=== PATIENT | male | born 1955 | race Caucasian/White ===

== ENCOUNTER 2016-12-19 08:55 | Inpatient (IN) | payer MEDICARE, MEDICAID ==
[2016-12-19] VITALS (10 sets, daily range): BP systolic 121–157; BP diastolic 62–96; PULSE 74–89; RESP 17–29; O2SAT 92–96
[~2016-12-19] VITALS: Ht 182.9 cm; Wt 108.3 kg
[2016-12-19] MEDS ORDERED: Ondansetron 2 mg/mL 2 mL Inj ONE ×2 (10:00)
--- NOTE | 2016-12-19 10:28 | ED.REPORT ---
HPI-Abd Pain M 40 and Over Date of Service Dec 19, 2016 ED Provider: Nik Snyder MD Pt is a 61 year old male with a hx of Hepatitis C, PTSD, hernia, cirrhosis and hemorrhoids presenting to the ED via EMS complaining of lower abd pain onset at 1300 yesterday. Associated symptoms include nausea, vomiting, diarrhea, SOB, subjective fever. Denies dysuria, hematuria, hematemesis. The diarrhea has been more pronounced than the vomiting, and has had trace blood in it. He states that this pain has been worsening over the past few years, but he has not had to go to the hospital for this pain before. The pt has had a justin but still has his appendix. Nursing Notes Stated Complaint: NAUSEA/VOMITING/DIARRHEA Chief Complaint: Male Abdominal Pain Nursing Notes Reviewed: Yes ([place]ster not reconciled) Allergies: Coded Allergies: No Known Allergies (Verified Allergy, Unknown, 12/19/16) Scheduled Amlodipine (Amlodipine) 5 Mg Tablet 5 MG PO DAILY Lisinopril (Lisinopril) 20 Mg Tablet 20 MG PO BID Metoprolol Succinate ER (Metoprolol Succinate ER) 25 Mg Tab.er.24h 25 MG PO DAILY Omeprazole (Omeprazole) 40 Mg Capsule.dr 40 MG PO BID Simvastatin (Simvastatin) 20 Mg Tablet 20 MG PO HS Triamterene/HCTZ 37.5-25 mg (Dyazide 37.5-25 mg) 1 Each Capsule 1 CAPSULE PO DAILY General Time Seen by MD: 09:49 Chief Complaint Abdominal pain Hx Obtained From: Patient, EMS Arrived By: Ambulance Sudden in Onset?: No Onset Occurred: Yesterday Symptom Duration: Since onset Progression since Onset: Constant Location: : Abdomen lower Quality: Painful Radiation: : Abdomen lower Severity: Current: Severe Severity: Maximum: Severe Recent Healthcare: No recent doctor visit, No recent hospitalization Similar Sx Previous: Yes Past Medical History Past Medical History Cirrhosis, Hepatitis C, PTSD, hernia and hemorrhoids Past Surgical History Reports: Cholecystectomy, Denies: Appendectomy Smoking History Unknown if Ever Smoker Social History Other Social History: Ambulatory Status Independent Review of Systems Constitutional: Reports: Fever (Subjective) Respiratory: Reports: Shortness of breath GI: Reports: Abdominal pain, Diarrhea, Nausea, Vomiting, Denies: Hematemesis Male: Denies Dysuria, Denies Hematuria Complete sys rev & neg: except as marked. Physical Exam Initial Vital Signs Vital Signs (First) Date Time Temp Pulse Resp B/P Pulse Ox O2 Delivery O2 Flow Rate FiO2 12/19/16 09:01 37 80 17 157/88 95 Room Air Initial VS: Reviewed, Vital signs normal Head / Eyes: Atraumatic, Normocephalic, PERRL ENT: Mucous membranes moist, Conjunctiva normal, No scleral icterus Extremities: Vascular intact, Neuro intact, No swelling, No tenderness Skin: Warm, Dry, No cyanosis Neurologic: Alert, Oriented, Nonfocal Psychiatric: Mood/affect normal, Behavior normal, Normal thought content General/Constitutional: Awake, Alert, Well appearing Distress / Hydration: Positive: Distress moderate Respiratory / Chest: Breath sounds NL, Breath sounds = bilat, No respiratory distress, No rales, No rhonchi, No wheezing Cardiovascular: Heart rate NL, Regular rhythm, Heart sounds NL, Peripheral circulation NL Abdomen: Soft In severe crampy intermittent pain. Tenderness lower abdomen. Intimate but not reproducible guarding. Lower Extremity / Pelvis / MS: Neurologic intact, Vascular intact, No edema Interpretation & Diagnostics Lab Results Interpretation Result Diagram: 12/19/16 0905 12/19/16 0905 Test 12/19/16 09:05 12/19/16 12:34 White Blood Count 10.5th/mm3 (3.8-10.1) Red Blood Count 4.10mil/mm3 (4.40-5.80) Hemoglobin 13.9g/dL (13.8-17.2) Hematocrit 40.4% (41.0-50.0) Mean Corpuscular Volume 98.5fL (81-100) Mean Corpuscular Hemoglobin 33.9pg (27.0-35.0) Mean Corpuscular Hemoglobin Concent 34.4% (32.0-37.0) Red Cell Distribution Width 15.1% (12.3-15.4) Platelet Count 64bil/L (150-400) Neutrophils (%) (Auto) 88.6% (40-74) Lymphocytes (%) (Auto) 3.8% (14-46) Monocytes (%) (Auto) 7.2% (4-12) Eosinophils (%) (Auto) 0% (0-5) Basophils (%) (Auto) 0.1% (0-3) Hold Purple Top Tube Received (Received) Prothrombin Time 12.8sec (8.1-12.5) Prothromb Time International Ratio 1.19ratio Hold Blue Top Tube Received (Received) Sodium Level 137mEq/L (134-144) Potassium Level 3.5mEq/L (3.5-5.2) Chloride Level 103mEq/L (97-108) Carbon Dioxide Level 21mmol/L (18-29) Blood Urea Nitrogen 12mg/dL (6-24) Creatinine 0.84mg/dL (0.76-1.27) Estimat Glomerular Filtration Rate 99mL/min (>59) Glucose Level 129mg/dL (60-99) Calcium Level 8.8mg/dL (8.5-10.1) Magnesium Level 1.7mg/dL (1.6-2.6) Total Bilirubin 3.0mg/dL (0.0-1.2) Aspartate Amino Transf (AST/SGOT) 58U/L (0-50) Alanine Aminotransferase (ALT/SGPT) 49U/L (0-44) Alkaline Phosphatase 94U/L (25-160) Total Protein 7.4g/dL (6.4-8.4) Albumin 3.3g/dL (3.4-5.0) Lipase 13U/L (13-60) Procalcitonin 3.68ng/mL (0.00-0.08) Hold Red Top Tube Received (Received) Hold Coral Top Tube Received (Received) Urine Color Dark yellow (YELLOW) Urine Appearance Hazy (CLEAR,HAZY) Urine pH 6.0 (5.0-8.0) Urine Specific [place] 1.025 (1.003-1.035) Urine Protein 30mg/dL (NEG,TRACE) Urine Glucose (UA) Negativemg/dL (NEGATIVE) Urine Ketones Negativemg/dL (NEGATIVE) Urine Occult Blood Trace (NEGATIVE) Urine Nitrite Negative (NEGATIVE) Urine Bilirubin Negative (NEGATIVE) Urine Urobilinogen Normalmg/dL (NORMAL) Urine Leukocyte Esterase Negative (NEGATIVE) Urine RBC 0-2/hpf (0-2) Urine WBC 0-5/hpf (0-5) Urine Epithelial Cells Occasional/hpf (NONE-MOD) Urine Crystals None seen (NONE SEEN) Urine Bacteria None/hpf (NONE-FEW) Urine Hyaline Casts None/lpf (NONE) Urine Granular Casts None seen (NONE SEEN) Urine Waxy Casts None seen (NONE SEEN) Urine Red Blood Cell Casts None seen (NONE SEEN) Urine White Blood Cell Casts None seen (NONE SEEN) Urine Mucus Present (None Seen) Urine Trichomonas None seen (NONE SEEN) Urine Yeast None (NONE SEEN) Urinalysis Comment None Urine Culture Reflexed Not indicated Lab Results Interpretation: CBC 10.5, positive thrombocytopenia in setting of chronic liver disease CMP chronic LFT abnormalities, patient's cirrhotic INR normal Blood cultures [address] Abd / Pelvis Interpretation IMPRESSION: 1. Marked enlargement of the duodenum and proximal jejunum with corresponding prominent bowel wall thickening. This appearance is most suspicious for an infectious or inflammatory process. An ischemic process is felt to be unlikely, but cannot be excluded. 2. Edema adjacent to the pancreas is of doubtful significance. However, the possibility of acute pancreatitis is difficult to exclude. There are no pseudocysts or loculated fluid collections. 3. Cirrhotic liver morphology with multiple abdominal collateral vessels, splenomegaly, and mild to moderate ascites. 4. Colonic diverticulosis without diverticulitis. No complete bowel obstruction. 5. Mild basilar atelectasis within the imaged lung bases. Dictated by: Carlitos Carrillo M.D. on 12/19/2016 at 11:29 Study type: Abdominal CT IV contrast Interpretation / Wet Read by: Interpret - Radiologist Re-Eval/Medical Decision Med Decision/Clinical Course This is a 61-year-old male with a history of cirrhosis secondary hep C on rifaximin among other medications presents complaining of vomiting and diarrhea , subjective fevers, and increasing lower abdominal pain. Axilla waning crampy areas of pain and it has intermittent severe discomfort on initial exam. Patient denies any recent antibiotics beyond the rifaximin, no other risk factors for overt C. difficile. He denies prior history of similar symptoms. Patient appears very uncomfortable on exam and has intermittent severe pain. His abdominal exam is intermittent tenderness, could not persist take as might be expected in a clear surgical case, it is concerning enough symptoms that imaging was warranted. Blood work was nondiagnostic, CT imaging reveals bowel wall thickening and atypical areas, moderate ascites. But a definitive source was not identified. His ongoing discomfort to require titrated medications, case was discussed with GI who recommended going ahead and pursuing ultrasound-guided paracentesis to exclude SBP in the setting of his liver disease, and obtaining MRI imaging of the abdomen with the thought of portal vein thrombosis, or some sort of better clarification exclude ischemic given atypical ischemia in the lot numb and proximal jejunum, although this location for ischemia be very atypical Trying to obtain stool sample for PCR testing. Cultures of urine obtained. After being seen by the hospitalist given subjective fevers she is thinking of providing some empiric antibiotic coverage. The patient has been admitted for continued management. At this point a infectious source is still suspected, but a definitive etiology is not been established. Source of Hx: Old records Time of Eval: 14:06 Patient Status: Condition improved Re-Evaluation/Progress Note: Discussed plan for admission. Pt understands and agrees. Time of Eval: 14:39 Patient Status: Condition improved Re-Evaluation/Progress Note: Discussed plan for US and paracentesis, and MRI. Consultation #1: Referral / Consult Name: Farzad Evans MD Call Returned at: 14:29 Note: GI. Get an ultrasound and paracentesis and MRI. Consultation #2: Referral / Consult Name: Donavon Ambrose MD Consulted With: Hospitalist Call Returned at: 14:56 Panel Assembler: Will see patient, Agrees with plan, Accepts admit Counseled Regarding: Diagnosis, Lab results, Need for follow-up, When/why to return to ED Discharge & Departure Primary Impression: Generalized abdominal pain Additional Impressions: Vomiting and diarrhea Cirrhosis Hepatic cirrhosis type: unspecified hepatic cirrhosis Ascites presence: with ascites Qualified Code: K74.60 - Unspecified cirrhosis of liver Abnormal CT of the abdomen Disposition: ADMITTED TO HOSPITAL Vital Signs - All Vital Signs Date Time Temp Pulse Resp B/P Pulse Ox O2 Delivery O2 Flow Rate FiO2 12/19/16 14:30 85 21 136/62 92 Room Air 12/19/16 13:30 89 21 134/78 92 12/19/16 11:30 88 25 145/84 94 Room Air 12/19/16 10:57 84 29 154/93 92 Room Air 12/19/16 09:01 37 80 17 157/88 95 Room Air )( All Prior VS Reviewed: Yes Condition: Improved Referrals: [facility] (PCP) Scribe Attestation Portions of this note were transcribed by Sadia Corrales. I, Dr. Snyder personally performed the history, physical exam and medical decision-making; I reviewed and confirmed the accuracy of the information in the transcribed note. Signed by: Ciro King, 12/19/2016 at 1515. copies to: [facility] Nik Snyder MD Dec 19, 2016 10:28 SADIA CORRALES Dec 19, 2016 11:02
[2016-12-19] MEDS ORDERED: Ondansetron 2 mg/mL 2 mL Inj IVPUSH ONE ×2 (10:30→14:50)
[2016-12-19 11:06] LABS: EOSINOPHILS % (AUTO) 0 % (0-5); Mean Corpuscular Volume 98.5 fL (81-100)
[2016-12-19 11:10] LABS: BASOPHILS % (AUTO) 0.1 % (0-3); MONOCYTES % (AUTO) 7.2 % (4-12); Mean Corpuscular Hemoglobin 33.9 pg (27.0-35.0); NEUTROPHILS % (AUTO) 88.6 % (40-74); Platelet Count 64 bil/L (150-400)
[2016-12-19] MEDS ORDERED: 0.9% Sodium Chloride 1,000 ML IV ONE (11:15)
[2016-12-19] MEDS ORDERED: Ondansetron 2 mg/mL 2 mL Inj IVPUSH PRN (11:15)
[2016-12-19] MEDS: HYDROmorphone 0.5 mg/0.5 mL iSecure Syringe IVPUSH PRN ×3 (11:35→15:08)
[2016-12-19 11:39] LABS: Magnesium 1.7 mg/dL (1.6-2.6)
--- NOTE | 2016-12-19 13:01 | DRSVH ---
PROCEDURE: CT ABDOMEN AND PELVIS WITH CONTRAST ([id number]) INDICATIONS: abd pain TECHNIQUE: After the administration of intravenous contrast, 5 mm thick sections acquired from the diaphragm to the symphysis. 5 mm coronal and sagittal reformats were acquired. For radiation dose reduction, the following was used: automated exposure control, adjustment of mA and/or kV according to patient siz e. COMPARISON: None. FINDINGS: Image quality: Diagnostic. ABDOMEN: Lung bases: Mild posterior atelectasis is present within the both lung bases (right slightly greater than left). The heart is borderline enlarged. There is a very tiny inferior pericardial effusion. Small pericardial lymph nodes are incidentally noted with the largest measuring up to approximately 1 .1 cm in short axis. Solid organs: The liver is diffusely heterogeneous and demonstrates moderate nodularity to the surfac e of the liver. While no liver lesion is appreciated, evaluation for subtle liver lesions is difficu lt as this examination is noted to be within the portal venous phase and subsequently, several liver masses could potentially be missed. The patient has had a previous cholecystectomy and there is no s ignificant intrahepatic or extrahepatic biliary dilatation. The portal vein is patent and measures u p to approximately 2.3 cm in diameter, which is enlarged. A few borderline prominent vessels are see n within the upper mesentery and within the region of the gastroesophageal junction. The spleen is m arkedly enlarged and measures up to approximately 22.7 cm in craniocaudal dimension. No focal spleni c lesion is identified. The adrenals, kidneys, and pancreas appear to be within normal limits. The pancreas is largely fatty replaced, particularly involving the head and uncinate process. There may be edema adjacent to the tail of the pancreas within the adjacent mesentery. Peritoneum and bowel: The stomach is within normal limits. There is prominent thickening of the wall of the duodenum, which extends into the proximal jejunum with a small amount of fluid contained with in the bowel lumen and a moderate amount of edema within the adjacent mesentery. A small amount of f ree fluid is seen adjacent to these distended bowel loops. No definite abrupt transition point is ev ident. However, the transition from dilated to normal size small bowel is a smooth area of tapering (image 13, series 4). Moderate residual stool is identified throughout the colon. There is an exten sive distal colonic diverticulosis. A small to moderate amount of free fluid is seen within the uppe r abdomen, best appreciated adjacent to the liver. No loculated fluid collections or free air is inge dent. There is a small periumbilical fat containing hernia. Nodes and vessels: Multiple prominent upper retroperitoneal lymph nodes are identified, best apprecia silvia within the portacaval region with the largest measuring 3.4 x 1.3 cm (image 35, series 2). Addit ional smaller retroperitoneal lymph nodes are present. Multiple small mesenteric lymph nodes are als o seen adjacent to the root of the mesentery. Some of these lymph nodes are partially obscured by mu ltiple collateral vessels within the mesentery. The abdominal aorta is normal in course and caliber and demonstrates moderate atherosclerosis. The inferior vena cava is patent. Bones: No acute osseous abnormality is evident involving the imaged thoracolumbar spine. There are m ild degenerative changes of the spine. No suspicious osseous abnormalities are evident. PELVIS: Pelvic soft tissues: There are bladder is within normal limits. No significant bladder wall thickeni ng is present. There is a coarse calcification within the prostate, which is noted to be enlarged, m easuring up to approximately 5.4 x 4.1 cm. A small amount of free fluid is seen within the pelvis. There are no loculated fluid collections. There is no free air. There is a small fat containing lef t inguinal hernia. Fluid is seen extending into this hernia. Small pelvic lymph nodes are present. There is no bettye lymphadenopathy. Bones: No suspicious bony lesions. Mild to moderate degenerative changes are noted involving both h ips, sacroiliac joints, and pubic symphysis. IMPRESSION: 1. Marked enlargement of the duodenum and proximal jejunum with corresponding prominent bowel wall t hickening. This appearance is most suspicious for an infectious or inflammatory process. An ischemi c process is felt to be unlikely, but cannot be excluded. 2. Edema adjacent to the pancreas is of doubtful significance. However, the possibility of acute pa ncreatitis is difficult to exclude. There are no pseudocysts or loculated fluid collections. 3. Cirrhotic liver morphology with multiple abdominal collateral vessels, splenomegaly, and mild to moderate ascites. 4. Colonic diverticulosis without diverticulitis. No complete bowel obstruction. 5. Mild basilar atelectasis within the imaged lung bases. Dictated by: Carlitos Carrillo M.D. on 12/19/2016 at 11:29 Approved by: Carlitos Carrillo M.D. on 12/19/2016 at 11:56
[2016-12-19 13:04] LABS: APPEARANCE,URINE HAZY (CLEAR,HAZY); COLOR,URINE DARK YELLOW (YELLOW)
[2016-12-19 13:05] LABS: OCCULT BLOOD,URINE TRACE (NEGATIVE); UROBILINOGEN,URINE NORMAL (NORMAL)
[2016-12-19] MEDS ORDERED: HYDROmorphone 0.5 mg/0.5 mL iSecure Syringe IVPUSH PRN (14:50)
[2016-12-19 14:55] LABS: INR 1.19 ratio
--- NOTE | 2016-12-19 15:00 | NUR ---
admitted to room 1005 alert and oriented, pt denies nausea at this time, having generalized abd pain, VSS, lungs sound clear, no edema
[2016-12-19] MEDS: 0.9% Sodium Chloride 1,000 ML IV SCH (15:06)
[2016-12-19] MEDS ORDERED: Alum-Mag Hydrox-Simeth 30 mL Suspension PO PRN (15:10)
[2016-12-19] MEDS ORDERED: HYDROcodone-APAP 5-325 mg Tablet PO PRN (15:10)
[2016-12-19] MEDS ORDERED: Polyethylene Glycol (PEG) 17 Gm Powder PO PRN (15:10)
--- NOTE | 2016-12-19 15:26 | PCM.HPMED ---
Subjective Date of Service Dec 19, 2016 Primary Provider: Admitting Physician: Donavon Ambrose MD Primary Care Physician: [facility] Attending Physician: Donavon Ambrose MD Admit Status: From the Emergency Department, Admit to Blue Team Chief Complaint: Abdominal Pain, Nausea, Vomiting, Fever, Chills History of Present Illness: Patient is a 61 year old male with a past medical history of Hepatitis C, Hepatic Cirrhosis, Essential Hypertension, Hyperlipidemia, GERD, and Tobacco Use Disorder. He presents to the ER complaining of worsening abdominal pain for the past day. Pt states his symptoms began yesterday with severe pain across his mid abdomen. Pt states the pain is a dull sensation, and radiates across his mid abdomen. The pain comes and goes and at its worst, he reports it is a 10/10. Pt states he also had a fever to 102 degrees yesterday and chills. He also reports significant nausea and vomiting over the last day and has not been able tolerate any PO. Pt states he has also had significant diarrhea over the last two days. He denies any hematochezia and melena. Pt denies any recent sick contacts. Pt has no other complaints or concerns at this time. Review of Systems: All systems reviewed and are negative except for what has been mentioned in the HPI. Allergies Coded Allergies: No Known Allergies (Verified Allergy, Unknown, 12/19/16) Home Medications 1. Amlodipine 2. Aspirin 3. Hydrocodone 4. Lisinopril 5. Metoprolol 6. Naproxen 7. Omeprazole 8. Simvastatin 9. Triamterene 10. Rifaxamin PMH 1. Hepatitis C 2. Hepatic Cirrhosis 3. Tobacco Use Disorder 4. Essential Hypertension 5. Hyperlipidemia 6. GERD Surgical History None Family History Father - Hypertension, Heart Disease Mother - Stroke Social History Hx Alcohol Use: Yes ("SOME") Hx Substance Use: No Hx Tobacco Use: Yes Smoking Status: Current Every Day Smoker Exam Vital Signs Vital Sign - Last Date Time Temp Pulse Resp B/P Pulse Ox O2 Delivery O2 Flow Rate FiO2 12/19/16 10:57 84 29 154/93 92 Room Air 12/19/16 09:01 37 Exam GENERAL: Pt appears to be in mild distress from his abdominal pain, Pt laying in bed comfortably HEENT: AT/NC, PERRLA, EOMI, Mucus Membranes are moist CARDIAC: RRR; No M/R/G PULM: CTAB; No wheezes or rhonchi bilaterally ABD: Soft, Significant tenderness to palpation across the mid-abdomen, Nondistended, Positive bowel sounds in all quadrants, No Hepatosplenomegaly appreciated EXT: No C/C/E; No calf tenderness bilaterally SKIN: Warm, Dry, [place], and Intact NEURO: Alert and oriented x3; Following all commands PSYCH: Normal mood and affect Lab and Diagnostics Result Diagram: 12/19/1690412/19/16904 X-Rays, CTs and MRIs CT ABDOMEN AND PELVIS WITH CONTRAST IMPRESSION: 1. Marked enlargement of the duodenum and proximal jejunum with corresponding prominent bowel wall thickening. This appearance is most suspicious for an infectious or inflammatory process. An ischemic process is felt to be unlikely , but cannot be excluded. 2. Edema adjacent to the pancreas is of doubtful significance. However, the possibility of acute pancreatitis is difficult to exclude. There are no pseudocysts or loculated fluid collections. 3. Cirrhotic liver morphology with multiple abdominal collateral vessels, splenomegaly, and mild to moderate ascites. 4. Colonic diverticulosis without diverticulitis. No complete bowel obstruction. 5. Mild basilar atelectasis within the imaged lung bases. Dictated by: Carlitos Carrillo M.D. on 12/19/2016 at 11:29 Approved by: Carlitos Carrillo M.D. on 12/19/2016 at 11:56 Assessment & Plan Sterling Hernandez is a 61 year old male with a past medical history of Hepatitis C Infection, Hepatic Cirrhosis, Essential Hypertension, Hyperlipidemia, GERD, and Tobacco Use Disorder who is admitted to hospital for suspected Infectious Colitis. 1. Infectious Colitis - CT scan is consistent with Infectious Colitis - Will start pt on IV Ciprofloxacin and Metronidazole for now - Check lactate now to rule out Ischemic Colitis - Will order a stool PCR now also - IV Normal Saline at 100 mL/hour - Repeat BMP and CBC with diff in AM - Gastroenterology has been consulted by the ER - IV Morphine PRN for pain - Will obtain and US and get a paracentesis to rule out Spontaneous Bacterial Peritonitis 2. Hepatic Cirrhosis - Secondary to Hepatitis C - Continue Rifaximin - Monitor closely - Avoid Acetaminophen 3. Essential Hypertension - Well controlled - Will resume pts home medications once medications now - Monitor blood pressure closely 4. Hyperlipidemia - Continue home statin therapy 5. GERD - Continue daily PPI 6. Tobacco Use Disorder - Will order a Nicotine Patch at this time FULL CODE, per discussion with patient at bedside. Donavon Ambrose MD Dec 19, 2016 15:26
[2016-12-19] MEDS: Ciprofloxacin Inj 400 MG in IV Premix 1 EACH IV SCH (16:00)
[2016-12-19] MEDS ORDERED: AMLO5TAB2 PO (16:22)
[2016-12-19] MEDS ORDERED: SIMV20TA4 PO (16:22)
[2016-12-19] MEDS ORDERED: METO25TA99 PO (16:22)
[2016-12-19] MEDS ORDERED: LISI-567 PO (16:22)
[2016-12-19] MEDS ORDERED: TRIA1CAP PO (16:22)
[2016-12-19] MEDS ORDERED: OMEP40CA36 PO (16:22)
--- NOTE | 2016-12-19 17:00 | DRSVH ---
PROCEDURE: US ABDOMEN, LIMITED ([id number]) INDICATIONS: ABd pain ro SBP TECHNIQUE: Real-time focused scanning was performed of the abdomen, with image documentation. COMPARISON: [facility], CT, CT ABD PELVIS W CON, 12/19/2016, 12:13. FINDINGS: No free fluid seen within all 4 quadrants of the abdomen and previously noted perihepatic f luid not definitively visualized sonographically. IMPRESSION: No ascites identified. Dictated by: Juanpablo KENDRICK Interpreted: Brittany Friedman MD on 12/19/2016 at 16:59 Transcribed by: IZABELA on 12/19/2016 at 17:00 Approved by: Brittany Friedman M.D. on 12/19/2016 at 22:48
[2016-12-19] MEDS: metroNIDAZOLE Inj 500 MG in IV Premix 1 EACH IV SCH (17:29)
--- NOTE | 2016-12-19 17:36 | DRSVH ---
PROCEDURE: MRA ANGIOGRAM ABDOMEN ([id number]) INDICATIONS: Abd pain TECHNIQUE: Precontrast axial, coronal, and sagittal TruFISP acquired through the abdomen and pelvis. Dynamic co antonina MRA using Care Bolus timing of the abdomen and pelvis during the administration of contrast, wi th 3-dimensional maximum intensity projection (MIP) reformats performed. COMPARISON: [facility], CT, CT ABD PELVIS W CON, 12/19/2016, 12:13. FINDINGS: Image quality: Excellent. Mesenteric arteries: The celiac axis is widely patent. The SMA is widely patent. Aorta: Aorta is normal in caliber and enhancement. Renal arteries: Renal arteries all appear patent. Extravascular soft tissues: Visualized solid organs are normal in size on limited pre-contrast image s. Low-density free fluid is present around the spleen and liver. The liver demonstrates a nodular garcia rface consistent with cirrhotic transformation. The spleen is enlarged and incompletely characterized . Trace free fluid is present throughout the mesenteric fat. The stomach is decompressed. The bowel i s not visualized. Bones: Marrow is normal in overall signal. IMPRESSION: 1. No findings to suggest normal radiographic appearance of the aorta, mesenteric arteries, and renal arteries. 2. Findings suspicious for cirrhotic transformation and portal hypertension including ascites and spl enomegaly. Dictated by: Nidia Allen M.D. on 12/19/2016 at 17:31 Approved by: Nidia Allen M.D. on 12/19/2016 at 17:34
--- NOTE | 2016-12-19 18:38 | NUR ---
orange urine urine is dark reddish orange
--- NOTE | 2016-12-19 22:16 | CONS ---
[address] [address] CONSULTATION REPORT PATIENT: NERI CROFT : 1955 MR#: [id number] ADMIT: 12/19/2016 JOB ID: [id number] DATE OF SERVICE: 12/19/2016 SOURCE OF CONSULTATION: It was pleasure seeing this patient at [facility] for abdominal pain. This is a 42-year-old gentleman with history of high blood pressure, hepatitis C, PTSD who also has underlying cirrhosis. He has been having this lower abdominal pain for a couple of years. It is on and off and it usually is self-limited, associated with occasional nausea and maybe vomiting. But, he does not have any significant prolonged abdominal pain until 1 o'clock yesterday. Yesterday, he was in his usual state of health. Then, all of a sudden, he started having this intense, sharp, lower abdominal pain which later became more diffuse. He said he was having 10/10 pain. It is the worst pain he ever had. He had this bout and then he had this dull sensation which makes him feel a little bit more better. Yesterday, he had chills and temperature of 102. He reported having nausea and vomiting. He was not able to eat anything. Also, during this time, he had significant amount of diarrhea for the past two days which is unusual for him. He denied seeing any blood in the stools or black stools. He denied any recent sick contacts. He came to the emergency department and in the ED they noted that he had leukocytosis with hemoglobin 10.5 and , 5th and 6th ribs. CT showing marked enlargement of duodenum and proximal jejunum with corresponding prominent bowel wall thickening. There is some edema adjacent to the pancreas. There is evidence of cirrhosis, colonic diverticulosis and some atelectasis. Based on these findings, he was admitted. He also had an MRA of the abdomen which did not show any evidence of vascular occlusion. He also had an ultrasound which showed no ascites. PAST MEDICAL HISTORY: Includes cirrhosis, hepatitis C, PTSD, hernia and hemorrhoids. PAST SURGICAL HISTORY: Appendectomy and cholecystectomy. SOCIAL HISTORY: Unknown if he uses any tobacco. REVIEW OF SYSTEMS: The patient was more comfortable when I saw him, and he feels that his abdominal pain is 4/10. Diffuse. He does feel hungry. Denies right now nausea or vomiting. Denies chest pain, shortness of breath. Denies dysuria or any blood in the urine, blood in the stools. No skin rash or joint pain. PHYSICAL EXAMINATION: The patient is alert, oriented, does appear comfortable. Temp 37.1, pulse 79, respirations 20, blood pressure 142/85. Head and neck: No icterus. No lymphadenopathy. Lungs clear. Cardiovascular: Regular rate and rhythm. Normal S1, S2. Abdomen: Soft. Diffuse tenderness. No guarding, rebound or firmness. Extremities: No pitting edema of the ankles. Skin: Shows no obvious jaundice. MEDICATIONS: 1. Cipro. 2. Flagyl. 3. Hydrocodone. 4. Tylenol. 5. Hydromorphone. 6. Morphine. 7. Temazepam. LABORATORY DATA: White count 10.5, hemoglobin 13.9, platelets are 64,000. Coag: INR of 1.19. Chemistry: AST 58, ALT 49, bilirubin 3.0, albumin 3.3. IMPRESSION: This is a gentleman who seemed to have sudden onset of abdominal pain and the finding on the CT as above. Differential not likely ischemic based on physical examination, and also the fact that there is no evidence of vascular clot or compromise based on the imaging studies. He is feeling better. His pain is at a 4/10. He received one dose of pain medication since he was admitted from the emergency department which was about 3 o'clock. He does not appear toxic. The other possibility is that of ulcer, but the distribution seems to be more diffuse to indicate this is not an ulcer. Therefore, infectious etiology is a possibility especially with a temp of 102 and diarrhea. For now, agree with Cipro and Flagyl. If there is no significant improvement afterwards, I would suggest possibly looking with the endoscope. KENDALL
--- NOTE | 2016-12-19 23:08 | NUR ---
Pain Pt has cramp like pain across his lower abdomen. He rated it at a 7. Given 2mg IV morphine Pt is resting comfortably. Pain reduced to a 2-3.
[2016-12-20] VITALS (8 sets, daily range): BP systolic 117–168; BP diastolic 62–104; PULSE 56–63; RESP 16–22; O2SAT 93–96
[2016-12-20] MEDS: 0.9% Sodium Chloride 1,000 ML IV SCH ×3 (01:06→22:10)
[2016-12-20] MEDS: Ciprofloxacin Inj 400 MG in IV Premix 1 EACH IV SCH ×2 (04:09→17:23)
--- NOTE | 2016-12-20 04:20 | NUR ---
Oral care Pt c/o dry mouth Given mouth swabs with cup of ice Pt agrees to simply swab his mouth, not eat the ice
[2016-12-20] MEDS: metroNIDAZOLE Inj 500 MG in IV Premix 1 EACH IV SCH ×2 (05:15→18:34)
[2016-12-20 05:36] LABS: BASOPHILS % (AUTO) 0.2 % (0-3); EOSINOPHILS % (AUTO) 0.4 % (0-5); MONOCYTES % (AUTO) 8.8 % (4-12); Mean Corpuscular Hemoglobin 33.1 pg (27.0-35.0); Mean Corpuscular Volume 100.9 fL (81-100); NEUTROPHILS % (AUTO) 78.5 % (40-74); Platelet Count 50 bil/L (150-400)
[2016-12-20] MEDS: Ondansetron 2 mg/mL 2 mL Inj IVPUSH PRN ×3 (08:44→19:36)
--- NOTE | 2016-12-20 09:57 | PCM.PNMED ---
Subjective Date of Service Dec 20, 2016 Subjective He still having 4 out of 10 pain. Last time he had his pain medication was about 4 hours ago. He has been walking around. He said he does not have much of an appetite this morning. He has had a bowel movement yesterday and it was diarrhea. Exam Vital Signs Vital Sign - Last Date Time Temp Pulse Resp B/P Pulse Ox O2 Delivery O2 Flow Rate FiO2 12/20/16 08:43 36.7 61 22 135/87 96 Room Air Intake and Output 12/19/16 12/19/16 12/20/16 Cumulative From/Thru 15:00 23:00 07:00 12/19/16 09:01 - 12/20/16 06:23 Intake Total 1000 ml 1217 ml 2217 ml Output Total 250 ml 400 ml 650 ml Balance 1000 ml -250 ml 817 ml 1567 ml Intake Oral 0 ml 0 ml IV Total 1000 ml 1217 ml 2217 ml Output Urine Total 250 ml 400 ml 650 ml Exam Patient is alert oriented does appear comfortable to some extent. Head and neck no clear icterus. Lungs clear Cardia vascular regular rate and rhythm with normal S1 and S2 Abdomen soft mildly distended tender in the lower and upper quadrant without guarding rebound or firmness with bowel sounds. Extremities no pedal edema of the ankles Skin no obvious jaundice. Lab and Diagnostics Result Diagram: 12/20/1651412/20/16514 X-Rays, CTs and MRIs CT ABDOMEN AND PELVIS WITH CONTRAST IMPRESSION: 1. Marked enlargement of the duodenum and proximal jejunum with corresponding prominent bowel wall thickening. This appearance is most suspicious for an infectious or inflammatory process. An ischemic process is felt to be unlikely , but cannot be excluded. 2. Edema adjacent to the pancreas is of doubtful significance. However, the possibility of acute pancreatitis is difficult to exclude. There are no pseudocysts or loculated fluid collections. 3. Cirrhotic liver morphology with multiple abdominal collateral vessels, splenomegaly, and mild to moderate ascites. 4. Colonic diverticulosis without diverticulitis. No complete bowel obstruction. 5. Mild basilar atelectasis within the imaged lung bases. Dictated by: Carlitos Carrillo M.D. on 12/19/2016 at 11:29 Approved by: Carlitos Carrillo M.D. on 12/19/2016 at 11:56 Assessment & Plan Sterling Hernandez is a 61 year old male with a past medical history of Hepatitis C Infection, Hepatic Cirrhosis, Essential Hypertension, Hyperlipidemia, GERD, and Tobacco Use Disorder who is admitted to hospital for suspected Infectious Colitis. On further questioning about his liver, it does not appear that he had decompensated liver disease. He never had issues of ascites GI bleed encephalopathy etc. MRA did not reveal any evidence of vascular compromise therefore ischemic bowel much less likely. However he has not improved compared to yesterday. Ultrasound did not show enough ascites to be tapped. He is on Cipro and Flagyl. Since he is not improving, I would recommend getting a surgical consult. If he does not improve by tomorrow, we will consider doing an upper endoscopy. VTE Mechanical Devices: Intermittant Pneumatic CD Farzad Evans MD Dec 20, 2016 09:57
[2016-12-20] MEDS ORDERED: KCl 40 mEq/D5W 500 mL 40 MEQ in IV Premix 1 EACH IV ONE (10:15)
--- NOTE | 2016-12-20 12:00 | NUR ---
Pain in arm Pt c/o pain burning achy in right arm distal and proximal to IV. Pain goes into his shoulder and slightly into his chest. IV K+ running though IV. Decreased K+ to 80ml/hr and concurrently ran NS @ 40ml/ hr. Took off Ramona arm cover and gauze in AC area. This seems to help greatly. Care continues
--- NOTE | 2016-12-20 12:19 | PCM.PNMED ---
Subjective Date of Service Dec 20, 2016 Subjective Pt continues to complain of abdominal pain however he reports it seems to be mildly improved. He continues to complain of nausea but denies vomiting. Pt denies any fever overnight. Pt has no other complaints or concerns at this time. Exam Vital Signs Vital Sign - Last Date Time Temp Pulse Resp B/P Pulse Ox O2 Delivery O2 Flow Rate FiO2 12/20/16 11:24 62 12/20/16 08:43 36.7 22 135/87 96 Room Air Intake and Output 12/19/16 12/19/16 12/20/16 Cumulative From/Thru 15:00 23:00 07:00 12/19/16 09:01 - 12/20/16 06:23 Intake Total 1000 ml 1217 ml 2217 ml Output Total 250 ml 400 ml 650 ml Balance 1000 ml -250 ml 817 ml 1567 ml Intake Oral 0 ml 0 ml IV Total 1000 ml 1217 ml 2217 ml Output Urine Total 250 ml 400 ml 650 ml Exam GENERAL: NAD, Pt laying in bed comfortably HEENT: AT/NC, PERRLA, EOMI, Mucus Membranes are moist CARDIAC: RRR; No M/R/G PULM: CTAB; No wheezes or rhonchi bilaterally ABD: Soft, Tender to palpation over entire abdomen, Nondistended, Positive bowel sounds in all quadrants, No Hepatosplenomegaly appreciated EXT: No C/C/E; No calf tenderness bilaterally SKIN: Warm, Dry, [place], and Intact NEURO: Alert and oriented x3; Following all commands PSYCH: Normal mood and affect IVs and Medications Medications Reviewed: Medications were reviewed in detail Lab and Diagnostics Result Diagram: 12/20/1651412/20/16514 X-Rays, CTs and MRIs CT ABDOMEN AND PELVIS WITH CONTRAST IMPRESSION: 1. Marked enlargement of the duodenum and proximal jejunum with corresponding prominent bowel wall thickening. This appearance is most suspicious for an infectious or inflammatory process. An ischemic process is felt to be unlikely , but cannot be excluded. 2. Edema adjacent to the pancreas is of doubtful significance. However, the possibility of acute pancreatitis is difficult to exclude. There are no pseudocysts or loculated fluid collections. 3. Cirrhotic liver morphology with multiple abdominal collateral vessels, splenomegaly, and mild to moderate ascites. 4. Colonic diverticulosis without diverticulitis. No complete bowel obstruction. 5. Mild basilar atelectasis within the imaged lung bases. Dictated by: Carlitos Carrillo M.D. on 12/19/2016 at 11:29 Approved by: Carlitos Carrillo M.D. on 12/19/2016 at 11:56 Assessment & Plan Sterling Hernandez is a 61 year old male with a past medical history of Hepatitis C Infection, Hepatic Cirrhosis, Essential Hypertension, Hyperlipidemia, GERD, and Tobacco Use Disorder who is admitted to hospital for suspected Infectious Colitis. 1. Infectious Colitis - CT scan is consistent with Infectious Colitis - Continue IV Ciprofloxacin and Metronidazole for now - Lactic Acid level is normal - Stool PCR is pending - Continue IV Normal Saline at 100 mL/hour - Repeat BMP and CBC with diff in AM - Gastroenterology on board - IV Morphine PRN for pain - Imaging negative for portal vein thrombosis - Advance diet as tolerated - Procalcitonin is 3.68 2. Hypokalemia - Will replace with IV KCl 40 mEq now - Recheck BMP in AM 3. Hepatic Cirrhosis - Secondary to Hepatitis C - Monitor closely - Avoid Acetaminophen 3. Essential Hypertension - Well controlled - Continue home medications - Monitor blood pressure closely 4. Hyperlipidemia - Continue home statin therapy 5. GERD - Continue daily PPI 6. Tobacco Use Disorder - Continue Nicotine Patch daily VTE Mechanical Devices: Intermittant Pneumatic CD Donavon Ambrose MD Dec 20, 2016 12:19
--- NOTE | 2016-12-20 13:41 | NUR ---
rgt chest pain P- Pt C/O chest pain on rgt side, the pain runs down his arm. I- Educated pt that potassium supplement might be cause. E- Pt understands where the pain is possibly coming from and is less anxious about the pain.
--- NOTE | 2016-12-20 15:32 | NUR ---
Social Work-initial assessment: Data:See initial assessment. Pt is a 61 y/o male who was admitted for abdominal pain per H&P. Pt's insurance is [employer] and [employer] [place] , and PCP is [facility] in [place]. EMR reviewed. Pt's readmission score is 3. SW met with pt to discuss discharge planning, SW role explained. Pt is alert and oriented x3. Pt resides at home with his SO. Pt drives and does not use any DME. Pt has no HH or SNF history. 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 Pt has completed DPOA/ advance directive, SW encouraged a copy to be brought in. Per RN notes, pt has been up independent in his room. SW provided phone number and plan on white board in room.No anticipated discharge needs. SW will continue to follow if needs arise. Assessment:Pt who is independent at baseline. Plan;Pt to discharge home when medically stable via POV.No anticipated discharge needs. SW will continue to follow if needs arise. OBDULIA Leroy Addendum: 12/20/16 at 1534 by EFREN KIRK Amended: Links added.
--- NOTE | 2016-12-20 18:23 | NUR ---
PAIN / Diet ABD Pain continues crampy and intermittent. Nausea with pain zofran works well as well as Morphine for pain. Diet advanced to soft. Pt tolerating full liq well. Care continues
--- NOTE | 2016-12-20 19:37 | NUR ---
Pain/Nausea Patient reported abdominal pain and request nausea medication. 2 mg Morphine and 4 mg ondansetron given. Patient repositions self for comfort. Call light and tray table within reach. Will continue to monitor patient hourly.
[2016-12-21] VITALS (9 sets, daily range): BP systolic 147–185; BP diastolic 81–109; PULSE 51–63; RESP 16; O2SAT 92–95
[2016-12-21] MEDS: Ondansetron 2 mg/mL 2 mL Inj IVPUSH PRN ×4 (02:04→21:21)
[2016-12-21] MEDS: Ciprofloxacin Inj 400 MG in IV Premix 1 EACH IV SCH ×2 (04:04→16:25)
[2016-12-21] MEDS: metroNIDAZOLE Inj 500 MG in IV Premix 1 EACH IV SCH ×2 (05:14→18:21)
[2016-12-21 05:43] LABS: BASOPHILS % (AUTO) 0 % (0-3); EOSINOPHILS % (AUTO) 2.6 % (0-5); MONOCYTES % (AUTO) 10.5 % (4-12); Mean Corpuscular Hemoglobin 33.4 pg (27.0-35.0); Mean Corpuscular Volume 100.6 fL (81-100); NEUTROPHILS % (AUTO) 69.5 % (40-74); Platelet Count 60 bil/L (150-400)
[2016-12-21] MEDS: 0.9% Sodium Chloride 1,000 ML IV SCH ×2 (08:23→19:59)
--- NOTE | 2016-12-21 11:24 | PCM.PNMED ---
Subjective Date of Service Dec 21, 2016 Subjective Pt states he is feeling 30% better today. He states he continues to have some mild intermittent nausea, but is no longer vomiting. He is tolerating PO well this morning. He continues to have pain across his abdomen but it is less severe than previous. Pt denies any fever overnight. RN reports no acute events overnight. Pt has no other complaints or concerns at this time. Exam Vital Signs Vital Sign - Last Date Time Temp Pulse Resp B/P Pulse Ox O2 Delivery O2 Flow Rate FiO2 12/21/16 08:29 36.8 56 16 172/93 94 Room Air Intake and Output 12/20/16 12/20/16 12/21/16 Cumulative From/Thru 15:00 23:00 07:00 12/19/16 09:01 - 12/21/16 05:39 Intake Total 2225 ml 1427 ml 5869 ml Output Total 1000 ml 450 ml 2100 ml Balance 1225 ml 977 ml 3769 ml Intake Oral 1280 ml 100 ml 1380 ml IV Total 945 ml 1327 ml 4489 ml Output Urine Total 800 ml 450 ml 1900 ml Stool Total 200 ml 200 ml # Bowel Movements 1 1 Exam GENERAL: NAD, Pt laying in bed comfortably HEENT: AT/NC, PERRLA, EOMI, Mucus Membranes are moist CARDIAC: RRR; No M/R/G PULM: CTAB; No wheezes or rhonchi bilaterally ABD: Soft, TTP over midabdomen with light palpation, Nondistended, Positive bowel sounds in all quadrants, No Hepatosplenomegaly appreciated EXT: No C/C/E; No calf tenderness bilaterally SKIN: Warm, Dry, [place], and Intact NEURO: Alert and oriented x3; Following all commands PSYCH: Normal mood and affect IVs and Medications Medications Reviewed: Medications were reviewed in detail Lab and Diagnostics Result Diagram: 12/21/16 0456 12/21/16 0456 X-Rays, CTs and MRIs CT ABDOMEN AND PELVIS WITH CONTRAST IMPRESSION: 1. Marked enlargement of the duodenum and proximal jejunum with corresponding prominent bowel wall thickening. This appearance is most suspicious for an infectious or inflammatory process. An ischemic process is felt to be unlikely , but cannot be excluded. 2. Edema adjacent to the pancreas is of doubtful significance. However, the possibility of acute pancreatitis is difficult to exclude. There are no pseudocysts or loculated fluid collections. 3. Cirrhotic liver morphology with multiple abdominal collateral vessels, splenomegaly, and mild to moderate ascites. 4. Colonic diverticulosis without diverticulitis. No complete bowel obstruction. 5. Mild basilar atelectasis within the imaged lung bases. Dictated by: Carlitos Carrillo M.D. on 12/19/2016 at 11:29 Approved by: Carlitos Carrillo M.D. on 12/19/2016 at 11:56 Assessment & Plan Sterling Hernandez is a 61 year old male with a past medical history of Hepatitis C Infection, Hepatic Cirrhosis, Essential Hypertension, Hyperlipidemia, GERD, and Tobacco Use Disorder who is admitted to hospital for suspected Infectious Colitis. 1. Infectious Colitis, Acute - Improving - CT scan is consistent with Infectious Colitis - Continue IV Ciprofloxacin and Metronidazole for now, consider switching to PO antibiotics in AM - Lactic Acid level is normal - Stool PCR is negative - Continue IV Normal Saline at 100 mL/hour - Repeat BMP and CBC with diff in AM - Gastroenterology on board - IV Morphine PRN for pain - Imaging negative for portal vein thrombosis - Procalcitonin was initially 3.68, and is now 3.30 2. Hypokalemia - Resolved - K was replaced with IV KCl 40 mEq now - Recheck BMP in AM 3. Hepatic Cirrhosis - Secondary to Hepatitis C - Monitor closely - Avoid Acetaminophen 4. Essential Hypertension - Well controlled - Continue home medications - Monitor blood pressure closely 5. Hyperlipidemia - Continue home statin therapy 6. GERD - Continue daily PPI 7. Tobacco Use Disorder - Continue Nicotine Patch daily VTE Mechanical Devices: Intermittant Pneumatic CD Donavon Ambrose MD Dec 21, 2016 11:24
--- NOTE | 2016-12-21 11:29 | NUR ---
NUTRITION ASSESSMENT: ASSESS: 61YO M with infectious colitis, RN notes with abdominal pain and nausea. PO 100% all trays. Texture altered diet. PMHX: Hepatitis C,Cirrhosis,HTN,Hyperlipidemia,GERD DIET: Soft. PO 100% all trays LABS: Alb 2.7, Glu 122 MEDS: Reviewed GI: 1 BM 12/21 WEIGHT: 106.5kg BMI: 31.0 = Obese EST.NEEDS: LIVER DISEASE/OBESITY (22-25/kg; 1.5-1.8g/kg) Kcal: [id number] Pro: 116-140 NUTRITION DIAGNOSIS: (1) Increased energy/protein needs related to increased demand for nutrients as evidenced by Cirrhosis. INTERVENTION: (1) PO intake currently at 100%; consider supplements if po trends down. MONITOR/EVALUATE: PO intake, labs, GI. F/U per moderate risk.
[2016-12-21] MEDS: Pantoprazole 20 mg ER24 Tablet PO SCH (11:31)
--- NOTE | 2016-12-21 17:48 | PCM.PNMED ---
Subjective Date of Service Dec 21, 2016 Subjective Patient complains of 6-7/10 abdominal pain. Right after he receives the Morphine , he reports improvement of the pain. He has been walking around more. He tolerates soft diet well, but states that he has to force himself to eat because he has no appetite. He reports a loose BM this morning. He still feels nauseous intermittently, but no vomiting. Exam Vital Signs Vital Sign - Last Date Time Temp Pulse Resp B/P Pulse Ox O2 Delivery O2 Flow Rate FiO2 12/21/16 16:34 36.8 58 16 179/103 94 Room Air Intake and Output 12/20/16 12/20/16 12/21/16 Cumulative From/Thru 15:00 23:00 07:00 12/19/16 09:01 - 12/21/16 05:39 Intake Total 2225 ml 1427 ml 5869 ml Output Total 1000 ml 450 ml 2100 ml Balance 1225 ml 977 ml 3769 ml Intake Oral 1280 ml 100 ml 1380 ml IV Total 945 ml 1327 ml 4489 ml Output Urine Total 800 ml 450 ml 1900 ml Stool Total 200 ml 200 ml # Bowel Movements 1 1 Exam General: Alert and oriented, speaking in full sentences, appears uncomfortable but not in acute distress. HEENT: NCAT, PERRLA, EOMI, Mucus Membranes are moist Cardiac: regular rate and rhythm with normal S1 and S2. No M/R/G Respiratory: clear to auscultation; No wheezes or rhonchi bilaterally Abdomen: Soft, mildly distended, diffuse tenderness to palpation with light palpation. No guarding or rebound tenderness. Positive bowel sounds in all quadrants. No hepatosplenomegaly appreciated. No ascites noted. Extremities: No edema/clubbing/cyanosis; No calf tenderness bilaterally Skin: Warm, Dry, [place], and Intact. No obvious jaundice. Neuro: Alert and oriented x3; Following all commands. Psych: Normal mood and affect IVs and Medications Medications Reviewed: Medications were reviewed in detail Lab and Diagnostics Result Diagram: 12/21/16 0456 12/21/16 0456 X-Rays, CTs and MRIs CT ABDOMEN AND PELVIS WITH CONTRAST IMPRESSION: 1. Marked enlargement of the duodenum and proximal jejunum with corresponding prominent bowel wall thickening. This appearance is most suspicious for an infectious or inflammatory process. An ischemic process is felt to be unlikely , but cannot be excluded. 2. Edema adjacent to the pancreas is of doubtful significance. However, the possibility of acute pancreatitis is difficult to exclude. There are no pseudocysts or loculated fluid collections. 3. Cirrhotic liver morphology with multiple abdominal collateral vessels, splenomegaly, and mild to moderate ascites. 4. Colonic diverticulosis without diverticulitis. No complete bowel obstruction. 5. Mild basilar atelectasis within the imaged lung bases. Dictated by: Carlitos Carrillo M.D. on 12/19/2016 at 11:29 Approved by: Carlitos Carrillo M.D. on 12/19/2016 at 11:56 PROCEDURE: US ABDOMEN, LIMITED IMPRESSION: No ascites identified. Dictated by: Juanpablo Villa RRA Interpreted: Brittany Friedman MD on 12/19/2016 at 16: 59 Transcribed by: IZABELA on 12/19/2016 at 17:00 Approved by: Brittany Friedman M.D. on 12/19/2016 at 22:48 PROCEDURE: MRA ANGIOGRAM ABDOMEN IMPRESSION: 1. No findings to suggest normal radiographic appearance of the aorta, mesenteric arteries, and renal arteries. 2. Findings suspicious for cirrhotic transformation and portal hypertension including ascites and splenomegaly. Dictated by: Nidia Allen M.D. on 12/19/2016 at 17:31 Approved by: Nidia Allen M.D. on 12/19/2016 at 17:34 Assessment & Plan 61 year old male with a past medical history of Hepatitis C Infection, Hepatic Cirrhosis, Essential Hypertension, Hyperlipidemia, GERD, and Tobacco Use Disorder who is admitted to hospital for suspected Infectious Colitis. Previous upper and lower endoscopy on 07/21/2016 showed: - Grade II esophageal varices s/p banded - Portal hypertensive gastropathy - 2 Polyps in the transverse colons s/p polypectomy. Assessments: 1. Acute gastroenteritis, present on admission, active 2. Hepatic cirrhosis secondary to chronic hepatitis C, chronic. 3. History of esophageal varices. Plans: - Patient does not appear to have decompensated liver disease. He never had issues of ascites, GI bleed, or encephalopathy. U/S did not revealed ascites. - MRA did not reveal any evidence of vascular compromise therefore ischemic bowel much less likely. - Continue antibiotics and pain medication. - Patient's symptoms has slowly improved, thus an upper endoscopy is not indicated at this point. We will reconsider depending on his clinical symptoms. Thank you for the consultation. Please contact us if you have any question or concern. I have seen and examine the pt with the resident and agree with above. Pain Evaluation: Adequate Pain Control GI Prophylaxis: Proton Pump Inhibitor VTE Mechanical Devices: Intermittant Pneumatic CD Resuscitation Status: CPR: Attempt Resuscitation Lidia Alvarenga DO Dec 21, 2016 17:48 Farzad Evans MD Dec 22, 2016 11:55
--- NOTE | 2016-12-21 19:20 | NUR ---
Ambulation / Pain Pt ambulating well independently with steady gait. Pain managed with Morphine IV 2mg and Zofran. Care continues
[2016-12-22] VITALS (11 sets, daily range): BP systolic 137–161; BP diastolic 84–99; PULSE 52–83; RESP 12–18; O2SAT 93–97
[2016-12-22] MEDS: Ondansetron 2 mg/mL 2 mL Inj IVPUSH PRN ×4 (02:41→21:46)
[2016-12-22] MEDS: 0.9% Sodium Chloride 1,000 ML IV SCH ×3 (03:06→19:50)
--- NOTE | 2016-12-22 03:58 | NUR ---
Pain Patient's pain being managed with IV Morphine 2mg. Premedicating with Zofran 4mg IV for nausea. Patient A&Ox3. Vitals stable. Patient has not been OOB yet this shift.
[2016-12-22] MEDS: Ciprofloxacin Inj 400 MG in IV Premix 1 EACH IV SCH (04:11)
[2016-12-22] MEDS: metroNIDAZOLE Inj 500 MG in IV Premix 1 EACH IV SCH (05:27)
[2016-12-22 05:41] LABS: BASOPHILS % (AUTO) 0.5 % (0-3); EOSINOPHILS % (AUTO) 3.9 % (0-5); MONOCYTES % (AUTO) 10.3 % (4-12); Mean Corpuscular Hemoglobin 33.4 pg (27.0-35.0); Mean Corpuscular Volume 98.3 fL (81-100); NEUTROPHILS % (AUTO) 69.6 % (40-74); Platelet Count 71 bil/L (150-400)
[2016-12-22] MEDS: Pantoprazole 20 mg ER24 Tablet PO SCH (06:07)
--- NOTE | 2016-12-22 09:21 | NUR ---
Pain P: Patient had complaints of lower abdominal pain and tenderness. Rating pain level at a 7/10. I: PRN Morphine given to manage pain and discomfort. E: Pain level will decrease to an acceptable level for patient comfort. O: Upon assessment, patient's pain level has decreased to a 3/10, which is an acceptable level per patient.
--- NOTE | 2016-12-22 14:02 | PCM.PNMED ---
Subjective Date of Service Dec 22, 2016 Subjective Patient is having Ponce diffuse abdominal pain which is mostly cramping. No radiation of pain to shoulder or back. No nausea vomiting. Diarrhea is resolved. GI is planning on performing an upper endoscopy this afternoon. He is not particularly hungry. No fevers chills cough or shortness of breath. Exam Vital Signs Vital Sign - Last Date Time Temp Pulse Resp B/P Pulse Ox O2 Delivery O2 Flow Rate FiO2 12/22/16 12:55 36.8 56 18 153/85 96 Room Air Intake and Output 12/21/16 12/21/16 12/22/16 Cumulative From/Thru 15:00 23:00 07:00 12/19/16 09:01 - 12/22/16 06:29 Intake Total 2620 ml 2073 ml 86400 ml Output Total 750 ml 900 ml 3750 ml Balance 1870 ml 1173 ml 6812 ml Intake Oral 1120 ml 700 ml 3200 ml IV Total 1500 ml 1373 ml 7362 ml Output Urine Total 750 ml 900 ml 3550 ml Stool Total 200 ml # Bowel Movements 0 1 Exam Alert and oriented 3, no distress. Fluent speech Anicteric sclera. Lungs are clear with normal rate and effort Heart is regular without murmur gallop or rub Abdomen soft nontender, distended. Minimally tender. No guarding or rebound. No organomegaly Extremities are free of edema. Skin is free of rash or lesions. IVs and Medications Medications Reviewed: Medications were reviewed in detail Lab and Diagnostics Result Diagram: 12/22/16 0500 12/22/16 0500 X-Rays, CTs and MRIs CT ABDOMEN AND PELVIS WITH CONTRAST IMPRESSION: 1. Marked enlargement of the duodenum and proximal jejunum with corresponding prominent bowel wall thickening. This appearance is most suspicious for an infectious or inflammatory process. An ischemic process is felt to be unlikely , but cannot be excluded. 2. Edema adjacent to the pancreas is of doubtful significance. However, the possibility of acute pancreatitis is difficult to exclude. There are no pseudocysts or loculated fluid collections. 3. Cirrhotic liver morphology with multiple abdominal collateral vessels, splenomegaly, and mild to moderate ascites. 4. Colonic diverticulosis without diverticulitis. No complete bowel obstruction. 5. Mild basilar atelectasis within the imaged lung bases. Dictated by: Carlitos Carrillo M.D. on 12/19/2016 at 11:29 Approved by: Carlitos Carrillo M.D. on 12/19/2016 at 11:56 PROCEDURE: US ABDOMEN, LIMITED IMPRESSION: No ascites identified. Dictated by: Juanpablo Villa RRA Interpreted: Brittany Friedman MD on 12/19/2016 at 16: 59 Transcribed by: IZABELA on 12/19/2016 at 17:00 Approved by: Brittany Friedman M.D. on 12/19/2016 at 22:48 PROCEDURE: MRA ANGIOGRAM ABDOMEN IMPRESSION: 1. No findings to suggest normal radiographic appearance of the aorta, mesenteric arteries, and renal arteries. 2. Findings suspicious for cirrhotic transformation and portal hypertension including ascites and splenomegaly. Dictated by: Nidia Allen M.D. on 12/19/2016 at 17:31 Approved by: Nidia Allen M.D. on 12/19/2016 at 17:34 Assessment & Plan 61 year old male with a past medical history of Hepatitis C Infection, Hepatic Cirrhosis, Essential Hypertension, Hyperlipidemia, GERD, and Tobacco Use Disorder who is admitted to hospital for suspected Infectious Colitis. 1. Infectious Colitis, Acute. POA. Improving. - CT scan is consistent with Infectious Colitis - Continue IV Ciprofloxacin and Metronidazole for now, consider switching to PO antibiotics in AM - Lactic Acid level is normal - Stool PCR is negative - Continue IV Normal Saline at 100 mL/hour - Repeat BMP and CBC with diff in AM - Gastroenterology on board - IV Morphine PRN for pain - Imaging negative for portal vein thrombosis - Procalcitonin was initially 3.68, and is now 3.30 The diarrhea is resolved and white count is normalizing. Endoscopy today. A PCR was negative. The patient may have had a viral gastroenteritis which is now resolving with some residual abdominal cramping. 2. Hypokalemia, POA. - Resolved - K was replaced with IV KCl 40 mEq now - Recheck BMP in AM 3. Hepatic Cirrhosis, POA. Stable. - Secondary to Hepatitis C - Monitor closely - Avoid Acetaminophen 4. Essential Hypertension, POA. Stable. - Well controlled - Continue home medications - Monitor blood pressure closely 5. Hyperlipidemia, POA. Stable. - Continue home statin therapy 6. GERD, POA. Stable. - Continue daily PPI 7. Tobacco Use Disorder, POA. Stable. - Continue Nicotine P Discharge planning. Hopefully discharge tomorrow if possible. Anticipate advancement of diet after scope today. Pain Evaluation: Adequate Pain Control GI Prophylaxis: Proton Pump Inhibitor VTE Mechanical Devices: Intermittant Pneumatic CD Resuscitation Status: CPR: Attempt Resuscitation David Goldstein MD Dec 22, 2016 14:02
--- NOTE | 2016-12-22 14:26 | PCM.CONPHA ---
Subjective Abdominal Pain, Nausea, Vomiting, Fever, Chills Objective Vital Signs Date Time Temp Pulse Resp B/P Pulse Ox O2 Delivery O2 Flow Rate FiO2 12/22/16 12:55 36.8 56 18 153/85 96 Room Air 12/22/16 08:17 36.4 52 18 154/93 94 Room Air 12/22/16 08:00 60 12/22/16 05:04 36.7 63 18 137/84 93 Room Air 12/22/16 03:28 64 12/22/16 00:51 36.7 63 18 156/97 93 Room Air 12/21/16 20:32 36.8 63 16 153/90 95 Room Air 12/21/16 16:34 36.8 58 16 179/103 94 Room Air Intake and Output 12/20/16 12/21/16 12/22/16 00:00 00:00 00:00 Intake Total 1000 ml 3442 ml 4047 ml Output Total 250 ml 1400 ml 1200 ml Balance 750 ml 2042 ml 2847 ml Weight (Kilograms): 107.800 Height (Feet): 6 Height (Inches): 0.00 Test 12/19/16 09:05 12/19/16 12:34 12/19/16 15:20 12/20/16 05:15 Hold Purple Top Tube Received (Received) Prothrombin Time 12.8sec (8.1-12.5) Prothromb Time International Ratio 1.19ratio Hold Blue Top Tube Received (Received) Magnesium Level 1.7mg/dL (1.6-2.6) Lipase 13U/L (13-60) Hold Red Top Tube Received (Received) Hold [place] Top Tube Received (Received) Urine Color Dark yellow (YELLOW) Urine Appearance Hazy (CLEAR,HAZY) Urine pH 6.0 (5.0-8.0) Urine Specific Loop 1.025 (1.003-1.035) Urine Protein 30mg/dL (NEG,TRACE) Urine Glucose (UA) Negativemg/dL (NEGATIVE) Urine Ketones Negativemg/dL (NEGATIVE) Urine Occult Blood Trace (NEGATIVE) Urine Nitrite Negative (NEGATIVE) Urine Bilirubin Negative (NEGATIVE) Urine Urobilinogen Normalmg/dL (NORMAL) Urine Leukocyte Esterase Negative (NEGATIVE) Urine RBC 0-2/hpf (0-2) Urine WBC 0-5/hpf (0-5) Urine Epithelial Cells Occasional/hpf (NONE-MOD) Urine Crystals None seen (NONE SEEN) Urine Bacteria None/hpf (NONE-FEW) Urine Hyaline Casts None/lpf (NONE) Urine Granular Casts None seen (NONE SEEN) Urine Waxy Casts None seen (NONE SEEN) Urine Red Blood Cell Casts None seen (NONE SEEN) Urine White Blood Cell Casts None seen (NONE SEEN) Urine Mucus Present (None Seen) Urine Trichomonas None seen (NONE SEEN) Urine Yeast None (NONE SEEN) Urinalysis Comment None Urine Culture Reflexed Not indicated Lactic Acid Level 1.5mmol/L (0.4-2.0) Procalcitonin 3.30ng/mL (0.00-0.08) Test 12/21/16 10:18 12/22/16 05:00 Ammonia 38ug/dL (18-53) White Blood Count 2.0th/mm3 (3.8-10.1) Red Blood Count 3.47mil/mm3 (4.40-5.80) Hemoglobin 11.6g/dL (13.8-17.2) Hematocrit 34.1% (41.0-50.0) Mean Corpuscular Volume 98.3fL (81-100) Mean Corpuscular Hemoglobin 33.4pg (27.0-35.0) Mean Corpuscular Hemoglobin Concent 34.0% (32.0-37.0) Red Cell Distribution Width 14.2% (12.3-15.4) Platelet Count 71bil/L (150-400) Neutrophils (%) (Auto) 69.6% (40-74) Lymphocytes (%) (Auto) 14.7% (14-46) Monocytes (%) (Auto) 10.3% (4-12) Eosinophils (%) (Auto) 3.9% (0-5) Basophils (%) (Auto) 0.5% (0-3) Sodium Level 137mEq/L (134-144) Potassium Level 3.6mEq/L (3.5-5.2) Chloride Level 105mEq/L (97-108) Carbon Dioxide Level 21mmol/L (18-29) Blood Urea Nitrogen 10mg/dL (6-24) Creatinine 0.89mg/dL (0.76-1.27) Estimat Glomerular Filtration Rate 93mL/min (>59) Glucose Level 121mg/dL (60-99) Calcium Level 8.0mg/dL (8.5-10.1) Total Bilirubin 1.0mg/dL (0.0-1.2) Aspartate Amino Transf (AST/SGOT) 84U/L (0-50) Alanine Aminotransferase (ALT/SGPT) 54U/L (0-44) Alkaline Phosphatase 77U/L (25-160) Total Protein 5.8g/dL (6.4-8.4) Albumin 2.5g/dL (3.4-5.0) Assessment/Plan Assessment/Plan IV TO PO INTERCHANGE 61 y/o male, on general diet and other scheduled PO meds. Changed cipro 200mg IV q12h to cipro 500mg PO bid metronidazole 500mg Q12h to metronidazole 500mg PO TID with meals Yuliet Mosquera Pharm.D Dec 22, 2016 14:26
--- NOTE | 2016-12-22 15:08 | PCM.PNMED ---
Subjective Date of Service Dec 22, 2016 Subjective GASTROENTEROLOGY PROGRESS NOTE: Patient reports no change in his pain level today. He responds well to Morphine , but it gets worse when he is off it. He also feels a little more bloated as well. Diarrhea has resolved as the patient has not had a BM since yesterday morning, which was loose. His appetite has not improved, but he denies nausea, vomiting, fever, or chills. Exam Vital Signs Vital Sign - Last Date Time Temp Pulse Resp B/P Pulse Ox O2 Delivery O2 Flow Rate FiO2 12/22/16 12:55 36.8 56 18 153/85 96 Room Air Intake and Output 12/21/16 12/21/16 12/22/16 Cumulative From/Thru 15:00 23:00 07:00 12/19/16 09:01 - 12/22/16 06:29 Intake Total 2620 ml 2073 ml 43271 ml Output Total 750 ml 900 ml 3750 ml Balance 1870 ml 1173 ml 6812 ml Intake Oral 1120 ml 700 ml 3200 ml IV Total 1500 ml 1373 ml 7362 ml Output Urine Total 750 ml 900 ml 3550 ml Stool Total 200 ml # Bowel Movements 0 1 Exam General: Alert and oriented, speaking in full sentences, appears uncomfortable but not in acute distress. HEENT: NCAT, PERRLA, EOMI, Mucus Membranes are moist Cardiac: regular rate and rhythm with normal S1 and S2. No M/R/G Respiratory: clear to auscultation; No wheezes or rhonchi bilaterally Abdomen: Soft, mildly distended, diffuse tenderness to palpation with light palpation. No guarding or rebound tenderness. Positive bowel sounds in all quadrants. No hepatosplenomegaly appreciated. No ascites noted. Extremities: No edema/clubbing/cyanosis; No calf tenderness bilaterally Skin: Warm, Dry, [place], and Intact. No obvious jaundice. Neuro: Alert and oriented x3. Following all commands. Psych: Normal mood and affect IVs and Medications Medications Reviewed: Medications were reviewed in detail Lab and Diagnostics Result Diagram: 12/22/16 0500 12/22/16 0500 X-Rays, CTs and MRIs CT ABDOMEN AND PELVIS WITH CONTRAST IMPRESSION: 1. Marked enlargement of the duodenum and proximal jejunum with corresponding prominent bowel wall thickening. This appearance is most suspicious for an infectious or inflammatory process. An ischemic process is felt to be unlikely , but cannot be excluded. 2. Edema adjacent to the pancreas is of doubtful significance. However, the possibility of acute pancreatitis is difficult to exclude. There are no pseudocysts or loculated fluid collections. 3. Cirrhotic liver morphology with multiple abdominal collateral vessels, splenomegaly, and mild to moderate ascites. 4. Colonic diverticulosis without diverticulitis. No complete bowel obstruction. 5. Mild basilar atelectasis within the imaged lung bases. Dictated by: Carlitos Carrillo M.D. on 12/19/2016 at 11:29 Approved by: Carlitos Carrillo M.D. on 12/19/2016 at 11:56 PROCEDURE: US ABDOMEN, LIMITED IMPRESSION: No ascites identified. Dictated by: Juanpablo Villa RRA Interpreted: Brittany Friedman MD on 12/19/2016 at 16: 59 Transcribed by: IZABELA on 12/19/2016 at 17:00 Approved by: Brittany Friedman M.D. on 12/19/2016 at 22:48 PROCEDURE: MRA ANGIOGRAM ABDOMEN IMPRESSION: 1. No findings to suggest normal radiographic appearance of the aorta, mesenteric arteries, and renal arteries. 2. Findings suspicious for cirrhotic transformation and portal hypertension including ascites and splenomegaly. Dictated by: Nidia Allen M.D. on 12/19/2016 at 17:31 Approved by: Nidia Allen M.D. on 12/19/2016 at 17:34 Assessment & Plan 61 year old male with a past medical history of Hepatitis C Infection, Hepatic Cirrhosis, Essential Hypertension, Hyperlipidemia, GERD, and Tobacco Use Disorder who is admitted to hospital for suspected Infectious Colitis. Previous upper and lower endoscopy on 07/21/2016 showed: - Grade II esophageal varices - Portal hypertensive gastropathy - 2 Polyps in the transverse colons s/p polypectomy. Assessments: 1. Acute gastroenteritis, present on admission, active 2. Hepatic cirrhosis secondary to chronic hepatitis C, chronic. 3. History of esophageal varices. Plans: - Patient does not appear to have decompensated liver disease. He never had issues of ascites, GI bleed, or encephalopathy. U/S did not revealed ascites. - MRA did not reveal any evidence of vascular compromise therefore ischemic bowel much less likely. - Patient's pancytopenia continues to worsen and his abdominal pain persists. - Because there has been no significant clinical improvement, we will perform an upper endoscopy this afternoon to examine the the duodenum and proximal jejunum with corresponding prominent bowel wall thickening on the CT. - Usual risks of the EGD were discussed with the patient and he wishes to proceed. Report to be followed. I saw and examined the patient with the resident. Agree with above. Thank you for the consultation. Please contact us if you have any question or concern. Pain Evaluation: Adequate Pain Control GI Prophylaxis: Proton Pump Inhibitor VTE Mechanical Devices: Intermittant Pneumatic CD Resuscitation Status: CPR: Attempt Resuscitation Lidia Alvarenga DO Dec 22, 2016 15:08 Farzad Evans MD Dec 24, 2016 09:18
[2016-12-22] MEDS ORDERED: Lactated Ringer's 1,000 ML IV ONE (17:02)
[2016-12-22] MEDS: Lactated Ringer's 1,000 ML IV SCH ×3 (17:02→17:31)
[2016-12-22] MEDS ORDERED: Atropine 0.4 mg/mL Inj IVPUSH PRN (17:05)
[2016-12-22] MEDS ORDERED: Ondansetron 2 mg/mL 2 mL Inj IVPUSH PRN (17:05)
[2016-12-22] MEDS ORDERED: MetoCLOpramide 5 mg/mL 2 mL Inj IVPUSH PRN (17:05)
--- NOTE | 2016-12-22 17:43 | PCM.ANEP1 ---
Post Anesthesia Phase 1 PACU Phase 1 Assessment Date of Service: Dec 22, 2016 Vital Signs Vital Signs Date Time Temp Pulse Resp B/P Pulse Ox O2 Delivery O2 Flow Rate FiO2 12/22/16 17:35 62 14 147/84 94 Room Air 12/22/16 17:29 83 12 139/96 97 Room Air 12/22/16 16:53 37.0 60 14 155/94 95 Room Air 12/22/16 12:55 36.8 56 18 153/85 96 Room Air Anesthetic Administered: MAC Level of Alertness: Awake, talking ANGEL's with Equal Strength: No Pain: Yes Pain Scale Score: 5 Nausea or Vomiting: No Oxygen Delivery: Nasal Cannula Lungs: Clear to Auscultation, Normal Air Movement Kristopher Fraser MD Dec 22, 2016 17:43
--- NOTE | 2016-12-22 17:43 | PCM.HPANE ---
Patient Data Date of Service: Dec 22, 2016 Surgeon Admitting Provider:Donavon Ambrose MD Attending Provider:Donavon Ambrose MD Primary Care Physician:[facility] Other Provider: Reason for Visit Abdominal Pain ABDOMINAL PAIN Ht/WT & BMI Height (Feet): 6 Height (Inches): 0.00 Weight (Kilograms): 107.800 Body Mass Index 32.00 Allergies Coded Allergies: No Known Allergies (Verified Allergy, Unknown, 12/19/16) Past Anesthesia History Anesthesia History: Denies:: Abnormal Airway, Anesthesia Reactions, Difficult Intubation, Fam Anesthesia Reaction, Fam Malignant Hypertherm, Malignant Hyperthermia Diabetes History Hx Diabetes?: No MRSA MRSA: No Medications Home Meds Incl Beta Anmol: Yes (NOT TAKING INPT) Reported Medications Triamterene/HCTZ 37.5-25 mg (Dyazide 37.5-25 mg)1 Each Capsule1 Capsule PO DAILY Ref 0 12/19/16 Simvastatin 20 Mg [id number] Mg PO HS Ref 0 12/19/16 Omeprazole 40 Mg Capsule.dr40 Mg PO BID Ref 0 12/19/16 Metoprolol Succinate ER 25 Mg Tab.er.24h25 Mg PO DAILY Ref 0 12/19/16 Lisinopril 20 Mg Eepwlk11 Mg PO BID 30 Days Ref 0 12/19/16 Amlodipine 5 Mg Tablet5 Mg PO DAILY Ref 0 12/19/16 History History of ENT Problems?: Yes HEENT History: Positive for:: Cataracts (stage 1) Hearing Problem (mild [place]) Denies:: Abnormal Airway Difficult Intubation Dysphagia Glaucoma Sinus Problem Teeth Condition: No Teeth Hx of Heart Problems?: Yes Cardiovascular History: Positive for:: Heart Murmur Hypertension Irregular Heartbeat Denies:: AICD Atrial Fibrillation Cardiac Surgery (heart ablation) Chest Pain Congestive Heart Failure Edema Pacemaker Thrombophlebitis Valvular Heart Disease Hx of Respiratory Problem?: Yes Respiratory History: Positive for:: Pneumonia (1999, 2003) Denies:: Asthma COPD Chest Surgery Dyspnea Emphysema Hemoptysis Tuberculosis Hx Neurologic Problems?: No Neurological History: Denies:: Alzheimer's Disease CVA Dementia Dizziness Headaches Parkinson's Disease Seizures Hx of GI Problems?: Yes Gastrointestinal History: Positive for:: Cirrhosis Gall Bladder Disease (REMOVED) Gastroesphageal Reflux Heartburn Hepatitis (hep C) Liver Disease Denies:: Diverticulitis Hiatal Hernia Rectal Bleeding Hx of Problems?: No Genitourinary History: Denies:: HX of Hemodialysis Kidney Stones Urinary Tract Infection HX of Peritoneal Dialysis: No Male Hx: Denies:: Prostate Problems Scrotal Mass Testicular Surgery Hx Musculoskeletal Problems?: No Musculoskeletal History: Positive for:: Back Injury (lower back pain) Denies:: Fibromyalgia Joint Replacement Musculoskeletal Trauma Hx of Psycho/Social Problems?: Yes Psycho Social History: Positive for:: Anxiety Bipolar Disorder Hx Depression Denies:: Suicide Attempt Other Psych Pertinent History: ADHD, PTSD Hx Surgeries?: Yes (Cholecystectomy, ing. hernia rep, lami C5-6, varicose veins , cervical ) Hx Any Other Health Problems?: Yes Other History: Positive for:: Hospitalization Denies:: Cancer Thyroid Disease History Blood Transfusions: Positive for:: Accept Blood Products? Denies:: Blood Transfuse Reaction Blood Transfusions Hx Diabetes: No Hx Alcohol Use: NoHx Substance Use: No Smoking Status: Current Every Day Smoker Have You Smoked inLast 12 mo: YesApprox How Many Cigarettes/day: 5-7 cigs day Stop/Bang Treated for Sleep Apnea?: No Do You Have a CPAP Machine?: No S-Snoring: Do You Snore Loudly: Yes T-Tired: feel tired, fatigued: No O-Obsered: Observed not breath: No P-Blood Pressure: treated: Yes B- Body Mass Index > 35 kg/m2: No A- Age over 50: Yes N- Neck Large Circumference: No G- Gender Male: Yes JONATHAN Total Score: 4 Risk Assessment Category Category 1A: Patient has history of documented sleep apnea, and HAS NOT received any narcotic, sedative or anesthesia administration during this stay. Category 1B: Patient has history of documented sleep apnea, and HAS received any narcotic , sedative or anesthesia administration during this stay Category 2: Patient has SUSPECTED Obstructive Sleep Apnea, and HAS received any narcotic , sedative or anesthesia administration during this stay. Category 3: Patient has SUSPECTED Obstructive Sleep Apnea and HAS NOT received narcotic, sedative or anesthesia administration during this stay. Category 4: Outpatient in Procedural Areas with known sleep apnea or who screen positive for High Risk via the STOP/BANG questionnaire. Exam Exam Vital Signs Vital Signs Date Time Temp Pulse Resp B/P Pulse Ox O2 Delivery O2 Flow Rate FiO2 12/22/16 16:53 37.0 60 14 155/94 95 Room Air 12/22/16 12:55 36.8 56 18 153/85 96 Room Air General Appearance: Alert, Oriented X3, Cooperative, No Acute Distress HEENT/AIRWAY: MP 2, Neck Movement (full), Mouth Opening (normal), Other ( edentulous) Lungs: Clear to Auscultation, Normal Air Movement Heart: Exam Unremarkable, Regular Rate/Rhythm, No Murmurs/Rubs/Gallops Meds/Labs/Diagnostics Labs Test 12/19/16 09:05 12/19/16 12:34 12/19/16 15:20 12/20/16 05:15 Hold Purple Top Tube Received (Received) Prothrombin Time 12.8sec (8.1-12.5) Prothromb Time International Ratio 1.19ratio Hold Blue Top Tube Received (Received) Magnesium Level 1.7mg/dL (1.6-2.6) Lipase 13U/L (13-60) Hold Red Top Tube Received (Received) Hold [place] Top Tube Received (Received) Urine Color Dark yellow (YELLOW) Urine Appearance Hazy (CLEAR,HAZY) Urine pH 6.0 (5.0-8.0) Urine Specific [place] 1.025 (1.003-1.035) Urine Protein 30mg/dL (NEG,TRACE) Urine Glucose (UA) Negativemg/dL (NEGATIVE) Urine Ketones Negativemg/dL (NEGATIVE) Urine Occult Blood Trace (NEGATIVE) Urine Nitrite Negative (NEGATIVE) Urine Bilirubin Negative (NEGATIVE) Urine Urobilinogen Normalmg/dL (NORMAL) Urine Leukocyte Esterase Negative (NEGATIVE) Urine RBC 0-2/hpf (0-2) Urine WBC 0-5/hpf (0-5) Urine Epithelial Cells Occasional/hpf (NONE-MOD) Urine Crystals None seen (NONE SEEN) Urine Bacteria None/hpf (NONE-FEW) Urine Hyaline Casts None/lpf (NONE) Urine Granular Casts None seen (NONE SEEN) Urine Waxy Casts None seen (NONE SEEN) Urine Red Blood Cell Casts None seen (NONE SEEN) Urine White Blood Cell Casts None seen (NONE SEEN) Urine Mucus Present (None Seen) Urine Trichomonas None seen (NONE SEEN) Urine Yeast None (NONE SEEN) Urinalysis Comment None Urine Culture Reflexed Not indicated Lactic Acid Level 1.5mmol/L (0.4-2.0) Procalcitonin 3.30ng/mL (0.00-0.08) Test 12/21/16 10:18 12/22/16 05:00 Ammonia 38ug/dL (18-53) White Blood Count 2.0th/mm3 (3.8-10.1) Red Blood Count 3.47mil/mm3 (4.40-5.80) Hemoglobin 11.6g/dL (13.8-17.2) Hematocrit 34.1% (41.0-50.0) Mean Corpuscular Volume 98.3fL (81-100) Mean Corpuscular Hemoglobin 33.4pg (27.0-35.0) Mean Corpuscular Hemoglobin Concent 34.0% (32.0-37.0) Red Cell Distribution Width 14.2% (12.3-15.4) Platelet Count 71bil/L (150-400) Neutrophils (%) (Auto) 69.6% (40-74) Lymphocytes (%) (Auto) 14.7% (14-46) Monocytes (%) (Auto) 10.3% (4-12) Eosinophils (%) (Auto) 3.9% (0-5) Basophils (%) (Auto) 0.5% (0-3) Sodium Level 137mEq/L (134-144) Potassium Level 3.6mEq/L (3.5-5.2) Chloride Level 105mEq/L (97-108) Carbon Dioxide Level 21mmol/L (18-29) Blood Urea Nitrogen 10mg/dL (6-24) Creatinine 0.89mg/dL (0.76-1.27) Estimat Glomerular Filtration Rate 93mL/min (>59) Glucose Level 121mg/dL (60-99) Calcium Level 8.0mg/dL (8.5-10.1) Total Bilirubin 1.0mg/dL (0.0-1.2) Aspartate Amino Transf (AST/SGOT) 84U/L (0-50) Alanine Aminotransferase (ALT/SGPT) 54U/L (0-44) Alkaline Phosphatase 77U/L (25-160) Total Protein 5.8g/dL (6.4-8.4) Albumin 2.5g/dL (3.4-5.0) Plan Impression Patient chart reviewed, patient interviewed and anesthestic plan with risks, benefits, and alternatives discussed, and informed consent obtained. NPO Status: 0900 ASA Physical Status: ASA3 Severe Disease Anesthetic Plan: MAC Bene/Risks/Altern/Consents: Yes HP Complete Prior to Induction: Yes Kristopher Fraser MD Dec 22, 2016 17:05
--- NOTE | 2016-12-22 17:44 | PCM.ANEP2 ---
Post Anesthesia Evaluation ASA/CMS Post Anesthesia Date of Service: Dec 22, 2016 VS in Patient's Normal Range?: Yes Resp Stable; Airway Patent?: Yes CV Function & Hydration Stable: Yes Mental Status Recovered?: Yes Pain control Satisfactory?: Yes N/V Control Satisfactory?: Yes Kristopher Fraser MD Dec 22, 2016 17:44
--- NOTE | 2016-12-22 18:10 | NUR ---
Back from Endo/Diet Patient back on unit from endoscopy procedure at this time. VSS. RA, spouse at bedside. May have clear liquid diet throughout night and start General Diet in am if tolerated due to multiple biopsies Dr. Evans does not want pt to have solid food soon after procedure. Family informed as spouse was stating she would get take out food for patient.
--- NOTE | 2016-12-22 18:13 | PCM.ENDEGD ---
EGD Date of Service: Dec 22, 2016 Physician Donavon Ambrose MD Pre Procedure Diagnosis: Abdominal pain and abnormal CT Post Procedure Dx & Findings: Esophageal varices portal hypertensive gastropathy mild inflammation of the small intestine Procedure Esophagogastroduodenoscopy PROCEDURE IN DETAIL: After proper sedation, Olympus video endoscope was inserted into patient's mouth and esophagus was successfully intubated. Scope introduced esophagus. Esophagus showed normal shiny whitish mucosa consistent with squamous cell component. Starting the proximal esophagus, we started seeing grade 2 varices extending all the way into the Z line. No stigmata noted. There were 4 columns of grade 2 varices and 1 column of grade 1 varices. One of the grade 2 varices seemed to extend into the cardia. However no isolated gastric varices noted. The scope further advanced to the stomach. The cardia fundus body revealedagain pattern mucosa consistent with portal hypertensive gastropathy. Antrum and prepyloric showed normal mucosa with no ulcer mass or erosions . Cardia fundus body antrum pylorus were all visualized. Retroflexion was done. Stomach was easily inflated and deflatable using air. Scope further events to the proximal jejunum. Small bowel revealed relatively patchy area of mild reddish and they deem this mucosa but the rugae folds and the villous structures were primarily intact. Biopsies obtained in these areas. Impression Esophageal varices as described above Portal hypertensive gastropathy Small bowel mild edema and redness consistent with mild inflammation Recommendation Await biopsies Liquid diet for now. Advance as tolerated tomorrow Presedation Assessment Risks and Benefits Informed consent was obtained from the patient after all risks and benefits including but not limited to drug reaction, infection, pain, bleeding, perforation, as well as alternatives were discussed. Patient monitoring Continuous pulse oximetry, cardiac monitoring, blood pressure monitoring, IV access, and oxygen at 2L per nasal cannula. Complications There were no periprocedural complications identified. Post Procedure Plan Post Procedure Recommendations 1. Restrict activities today. 2. Resume normal activities in the morning. 3. Resume medications. 4. GERD behavioral modification: - Avoid fatty, acidic, spicy, large meals - Do not lie down after meals - Do not eat or drink anything for at least 2 1/2 hours before going to bed at night - Discontinue tobacco and alcohol - Decrease or avoid caffeine - Avoid chocolate and mints - Decrease weight - Avoid aspirin and non steroidal anti-inflammatory agents (NSAID) such as Aleve, Advil, Mobic, Naproxen, Ibuprofen, etc 5. Add proton pump inhibitor. Take 30 minutes before 1st meal of the day. 6. Patient informed of normal post procedure side effects as bloating, drowsiness, blood streaking in the stool 7. If gastric biopsy reveal H.pylori, continue with appropriate treatment 8. If small bowel biopsy reveals celiac, continue with appropriate treatment 9. Please don't hesitate to call me with any questions Farzad Evans MD Dec 22, 2016 18:13
--- NOTE | 2016-12-22 22:20 | CONS ---
[address] [address] CONSULTATION REPORT PATIENT: NERI CROFT : 1955 MR#: [id number] ADMIT: 12/19/2016 JOB ID: [id number] DATE OF SERVICE: 12/22/2016 CHIEF COMPLAINT: This is a 61-year-old man with persistent abdominal pain. REQUESTING PHYSICIAN: This consultation is requested by Dr. Farzad Evans. 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 He reported a fever to 102 degrees prior to admission as well as chills. He has had persistent abdominal pain and abdominal distention. He has a small amount of ascites on CT scan, but not much. He had some diarrhea prior to admission, but no hematochezia or melena. A CT scan was performed in the emergency department and was consistent with infectious colitis. He was, therefore, started on ciprofloxacin and metronidazole. Stool studies were performed and have all come back negative. Because his pain and bloating have persisted, Dr. Evans asked me to see the patient as well as be present for endoscopy to observe any mucosal abnormalities. PAST MEDICAL HISTORY: 1. Hepatitis C. He was treated with interferon at one point; however, it was ineffective and, therefore, was stopped after a couple of months. 2. Hepatic cirrhosis. 3. Tobacco use. 4. Hypertension. 5. Hyperlipidemia. 6. GERD. PAST SURGICAL HISTORY: 1. Laparoscopic cholecystectomy. 2. Neck surgery to C5-6. 3. Right inguinal hernia repair. 4. Varicose vein stripping. 5. Cardiac ablation. MEDICATIONS: Reviewed and include ciprofloxacin and metronidazole. ALLERGIES: No known drug allergies. FAMILY HISTORY: His father had hypertension and heart disease, and his mother had a stroke. SOCIAL HISTORY: He currently drinks alcohol and smokes daily. PHYSICAL EXAMINATION: Temperature 37, heart rate 83, blood pressure 139/96, respiratory rate of 12, saturation 97% on room air. General: Awake and alert, somewhat disheveled, no acute distress. Head: Normocephalic. Neck: Supple. Cardiac: Regular rate and rhythm. Respiratory: Clear to auscultation bilaterally. Abdomen: Distended, soft, diffuse tenderness to mild-moderate palpation. No rebound or guarding. Extremities: No edema. Psychiatric: Normal cognition and judgment. Neurologic: No gross deficits. IMAGING: CT scan of the abdomen and pelvis reveals enlargement of the duodenum and proximal jejunum with bowel wall thickening, suspicious for infectious or inflammatory process. The liver is cirrhotic. Colonic diverticulosis without diverticulitis. Trace edema adjacent to the pancreas, thought to be of doubtful significance per the radiologist's read. MR angiogram: No abnormalities of the appearance of the aorta, mesenteric arteries, or renal arteries. The celiac and SMA are widely patent. Portal hypertension including ascites and splenomegaly is demonstrated. Abdominal ultrasound: No free fluid seen in the four quadrants of the abdomen. Upper endoscopy December 22, 2016: This was personally reviewed with Dr. Evans performing the procedure. He had esophageal varices, portal hypertensive gastropathy, and essentially normal appearing duodenal mucosa. Biopsies were performed of the duodenum. Please see Dr. Evans's report for further detail. LABORATORY DATA: White blood cell count is 2, hematocrit 34, platelets 71. Comprehensive metabolic panel is within normal limits with exception of AST 84, ALT 54, albumin 2.5. Creatinine is normal at 0.89. Bilirubin is normal at 1; it was 3 on admission. ASSESSMENT: A 61-year-old man with abdominal distention, bloating, and CT scan, findings suspicious for infectious or inflammatory enteritis. RECOMMENDATIONS: 1. I agree with the original assessment of inflammatory or infectious enteritis. I would place a viral enteritis higher on the differential given that the patient has had minimal response to antibiotic therapy. Based on his overall clinical picture, I do not think repeat CT scan at this time is warranted; however, in 2-3 days, if he continues to have no progress, repeat CT scan could be considered to determine the progression of the current process. I would recommend that he remain n.p.o. at this time. 2. No surgical intervention is recommended. 3. The General Surgery team will continue to follow this patient for the next several days.
[2016-12-23] VITALS (9 sets, daily range): BP systolic 138–173; BP diastolic 85–99; PULSE 54–64; RESP 16–20; O2SAT 94–97
[2016-12-23] MEDS: Ondansetron 2 mg/mL 2 mL Inj IVPUSH PRN (03:38)
--- NOTE | 2016-12-23 05:35 | NUR ---
NOC PT has done well through the night. HE has been medicated twice for abdominal pain. PT has not had any nausea or vomitting, but was given zofran twice with the morphine as it makes pt nauseous. PT has been in NSR in 60-70. Abdomen has some mild ascites noted and BS are still hypoactive. PT will likely advance to general diet this am. PT eager to eat. Voiding in BR. Adequate UO. Will CTM.
[2016-12-23] MEDS: 0.9% Sodium Chloride 1,000 ML IV SCH ×2 (05:53→16:09)
[2016-12-23] MEDS: Pantoprazole 20 mg ER24 Tablet PO SCH (05:54)
--- NOTE | 2016-12-23 09:39 | PCM.PNSURG ---
Subjective Visit Information: Reason for Visit Abdominal Pain Surgery/Surgery Date Post-Op Day # Date of Admission: Dec 19, 2016 at 14:57 Hospital Day # Subjective: abd pain is better than before, and diarrhea has resolved. Pt had EGD yesterday by GI. Objective Objective Awake in bed Abd: protuberant, mildly tender throughout (he has sore abdomen at baseline) no peritoneal signs Vital Sign- Last 8 Hours Date Time Temp Pulse Resp B/P Pulse Ox O2 Delivery O2 Flow Rate FiO2 12/23/16 07:55 36.6 56 16 173/99 97 Room Air 12/23/16 05:49 58 12/23/16 03:43 36.7 58 18 143/88 95 Room Air Intake and Output- Last 8 Hour 12/23/16 Cumulative From/Thru 07:00 12/19/16 09:01 - 12/23/16 05:53 Intake Total 1720 ml 35103 ml Output Total 2500 ml 7450 ml Balance -780 ml 6642 ml Intake Oral 700 ml 4700 ml IV Total 1020 ml 9392 ml Output Urine Total 2500 ml 7250 ml Stool Total 200 ml # Bowel Movements 0 1 Result Diagram: 12/22/16 0500 12/22/16 0500 Assessment & Plan Impression Abd pain, possibly due to enteritis Cirrhosis Thrombocytopenia Problems: Plan Plan per GI service Gen Surg will sign off. Resuscitation Status: CPR: Attempt Resuscitation Dev Lowe MD Dec 23, 2016 09:39
--- NOTE | 2016-12-23 11:40 | PCM.PNMED ---
Subjective Date of Service Dec 23, 2016 Subjective His abdominal pain is better. He was actually just tolerating general diet when I came to see him. Exam Vital Signs Vital Sign - Last Date Time Temp Pulse Resp B/P Pulse Ox O2 Delivery O2 Flow Rate FiO2 12/23/16 10:54 55 12/23/16 07:55 36.6 16 173/99 97 Room Air Intake and Output 12/22/16 12/22/16 12/23/16 Cumulative From/Thru 15:00 23:00 07:00 12/19/16 09:01 - 12/23/16 05:53 Intake Total 1810 ml 1720 ml 21471 ml Output Total 1200 ml 2500 ml 7450 ml Balance 610 ml -780 ml 6642 ml Intake Oral 800 ml 700 ml 4700 ml IV Total 1010 ml 1020 ml 9392 ml Output Urine Total 1200 ml 2500 ml 7250 ml Stool Total 200 ml # Bowel Movements 0 0 1 Exam Patient is alert and oriented comfortable Head and neck no icterus Lungs clear Cardia vascular regular rate and rhythm with normal S1-S2 Abdomen soft moderate superficial tenderness on the right side especially no guarding rebound or firmness mildly distended with normoactive bowel sounds Skin no jaundice Lab and Diagnostics Result Diagram: 12/22/16 0500 12/22/16 0500 X-Rays, CTs and MRIs CT ABDOMEN AND PELVIS WITH CONTRAST IMPRESSION: 1. Marked enlargement of the duodenum and proximal jejunum with corresponding prominent bowel wall thickening. This appearance is most suspicious for an infectious or inflammatory process. An ischemic process is felt to be unlikely , but cannot be excluded. 2. Edema adjacent to the pancreas is of doubtful significance. However, the possibility of acute pancreatitis is difficult to exclude. There are no pseudocysts or loculated fluid collections. 3. Cirrhotic liver morphology with multiple abdominal collateral vessels, splenomegaly, and mild to moderate ascites. 4. Colonic diverticulosis without diverticulitis. No complete bowel obstruction. 5. Mild basilar atelectasis within the imaged lung bases. Dictated by: Carlitos Carrillo M.D. on 12/19/2016 at 11:29 Approved by: Carlitos Carrillo M.D. on 12/19/2016 at 11:56 PROCEDURE: US ABDOMEN, LIMITED IMPRESSION: No ascites identified. Dictated by: Juanpablo KENDRICK Interpreted: Brittany Friedman MD on 12/19/2016 at 16: 59 Transcribed by: IZABELA on 12/19/2016 at 17:00 Approved by: Brittany Friedman M.D. on 12/19/2016 at 22:48 PROCEDURE: MRA ANGIOGRAM ABDOMEN IMPRESSION: 1. No findings to suggest normal radiographic appearance of the aorta, mesenteric arteries, and renal arteries. 2. Findings suspicious for cirrhotic transformation and portal hypertension including ascites and splenomegaly. Dictated by: Nidia Allen M.D. on 12/19/2016 at 17:31 Approved by: Nidia Allen M.D. on 12/19/2016 at 17:34 Assessment & Plan 61 year old male with a past medical history of Hepatitis C Infection, Hepatic Cirrhosis, Essential Hypertension, Hyperlipidemia, GERD, and Tobacco Use Disorder who is admitted to hospital for suspected Infectious Colitis. We did an upper endoscopy yesterday. Please see endoscopy report for further details. However the CT scan showing inflammation was confirmed however significant improvement of inflammation noted based on the EGD. I think I was able to get to the transition between duodenum and the jejunum. There were some mild evidence of edema and redness and biopsies obtained. This morning, he is eating a regular diet and tolerating it. This is consistent with improving enteritis. However he still has this right-sided pain. In reviewing his CT scan, there is some minimal amount of fluids surrounding the liver. Because about continuing of abdominal pain, if we are able to , I I would recommend a diagnostic tap and analysis of this fluid. If able to get fluid with send her for culture cell count and differential and albumin level. At this point, I do not think the pain that he is having is due to the enteritis. GI Prophylaxis: Proton Pump Inhibitor VTE Mechanical Devices: Intermittant Pneumatic CD Resuscitation Status: CPR: Attempt Resuscitation Farzad Evans MD Dec 23, 2016 11:40
--- NOTE | 2016-12-23 12:28 | NUR ---
GABBY GABBY signed
--- NOTE | 2016-12-23 15:15 | PCM.PNMED ---
Subjective Date of Service Dec 23, 2016 Subjective Patient seen and examined at bedside. Improved clinically but still with some abdominal pain. No nausea, no vomiting, tolerating PO intake . Exam Vital Signs Vital Sign - Last Date Time Temp Pulse Resp B/P Pulse Ox O2 Delivery O2 Flow Rate FiO2 12/23/16 13:18 36.7 57 16 138/86 95 Room Air Intake and Output 12/22/16 12/22/16 12/23/16 Cumulative From/Thru 15:00 23:00 07:00 12/19/16 09:01 - 12/23/16 05:53 Intake Total 1810 ml 1720 ml 45818 ml Output Total 1200 ml 2500 ml 7450 ml Balance 610 ml -780 ml 6642 ml Intake Oral 800 ml 700 ml 4700 ml IV Total 1010 ml 1020 ml 9392 ml Output Urine Total 1200 ml 2500 ml 7250 ml Stool Total 200 ml # Bowel Movements 0 0 1 Exam GENERAL: NAD in bed comfortably. HEENT: , PERRLA, EOMI, Mucus Membranes are moist Chest : No tenderness , normal respiratory effort CARDIAC: RRR; No M/R/G PULM: CTAB; No wheezes or rhonchi bilaterally ABD: Soft. Mild tenderness at RUQ , cheema negative. EXT: No C/C/E; No calf tenderness bilaterally SKIN: Warm, Dry, [place], and Intact. No rash, no ulcer NEURO: Alert and oriented x3; Grossly non focal PSYCH: Normal mood and affect IVs and Medications Medications Reviewed: Medications were reviewed in detail Lab and Diagnostics Result Diagram: 12/22/16 0500 12/22/16 0500 X-Rays, CTs and MRIs CT ABDOMEN AND PELVIS WITH CONTRAST IMPRESSION: 1. Marked enlargement of the duodenum and proximal jejunum with corresponding prominent bowel wall thickening. This appearance is most suspicious for an infectious or inflammatory process. An ischemic process is felt to be unlikely , but cannot be excluded. 2. Edema adjacent to the pancreas is of doubtful significance. However, the possibility of acute pancreatitis is difficult to exclude. There are no pseudocysts or loculated fluid collections. 3. Cirrhotic liver morphology with multiple abdominal collateral vessels, splenomegaly, and mild to moderate ascites. 4. Colonic diverticulosis without diverticulitis. No complete bowel obstruction. 5. Mild basilar atelectasis within the imaged lung bases. Dictated by: Carlitos Carrillo M.D. on 12/19/2016 at 11:29 Approved by: Carlitos Carrillo M.D. on 12/19/2016 at 11:56 PROCEDURE: US ABDOMEN, LIMITED IMPRESSION: No ascites identified. Dictated by: Juanpablo Villa RRA Interpreted: Brittany Friedman MD on 12/19/2016 at 16: 59 Transcribed by: IZABELA on 12/19/2016 at 17:00 Approved by: Brittany Friedman M.D. on 12/19/2016 at 22:48 PROCEDURE: MRA ANGIOGRAM ABDOMEN IMPRESSION: 1. No findings to suggest normal radiographic appearance of the aorta, mesenteric arteries, and renal arteries. 2. Findings suspicious for cirrhotic transformation and portal hypertension including ascites and splenomegaly. Dictated by: Nidia Allen M.D. on 12/19/2016 at 17:31 Approved by: Nidia Allen M.D. on 12/19/2016 at 17:34 Assessment & Plan 1. Infectious Colitis, Acute. POA. Improving. - CT scan is consistent with Infectious Colitis - Continue IV Ciprofloxacin and Metronidazole - He on liquid diet and tolerating . - Abdominal/RUQ pain unlikely ralated to enteritis . IR consulted by GI for possible tap on perihepatic fluid seen on CT scan 2. Hypokalemia, POA. - Resolved Eq now 3. Hepatic Cirrhosis, POA. Stable. - Secondary to Hepatitis C Outpatient follow up with GI 4. Essential Hypertension, POA. Stable. - Well controlled - Continue home medications 5. Hyperlipidemia, POA. Stable. - Continue home statin therapy 6. GERD, POA. Stable. - Continue daily PPI 7. Tobacco Use Disorder, POA. Stable. - Continue Nicotine Stable and improved. Patient with lingering abdominal pain . IR consulted by GI for possible tap on perihepatic fluid seen on CT scan Case discussed . Continue Cirpo and flagyl in the interim GI Prophylaxis: Proton Pump Inhibitor VTE Mechanical Devices: Intermittant Pneumatic CD Resuscitation Status: CPR: Attempt Resuscitation Time spent 25 minutes Mane Romero MD Dec 23, 2016 15:15 - Continue home medications 5. Hyperlipidemia, POA. Stable. - Continue home statin therapy 6. GERD, POA. Stable. - Continue daily PPI 7. Tobacco Use Disorder, POA. Stable. - Continue Nicotine Stable and improved. Patient with lingering abdominal pain . IR consulted by GI for possible tap on perihepatic fluid seen on CT scan Case discussed . Continue Cirpo and flagyl in the interim GI Prophylaxis: Proton Pump Inhibitor VTE Mechanical Devices: Intermittant Pneumatic CD Resuscitation Status: CPR: Attempt Resuscitation Time spent 25 minutes Mane Romero MD Dec 23, 2016 15:15
--- NOTE | 2016-12-23 15:32 | NUR ---
Social Work: Screen Note Data and Assessment: EMR reviewed. Patient is on his fourth day of hospitalization for abdominal pain per H&P. Patient is not medically ready for discharge. Patient continues to have abdominal pain per physicians note. No anticipated discharge needs. SW will continue to follow if needs arise. Plan: Pt to discharge home when medically stable via POV. No anticipated discharge needs. SW will continue to follow and assist patient throughout stay. Marilee España LMSW, [place]TE
--- NOTE | 2016-12-23 18:08 | NUR ---
Activity Pt advanced to general diet and was able to tolerate breakfast w/o nausea or vomiting, but has declined to eat more after that. Ordered lunch, but stated "I don't have much appetite." Pt up and walking safely to BR and in hallways. Belly distended, but soft. Plan is for tap and aspiration Sunday, time unknown, and pt is aware of plan. Pt has had pain 4-03/19 during shift. Transitioned pt from IV pain meds to PO. Addendum: 12/23/16 at 1830 by GRADY MOSES RN K-pad obtained for ongoing back pain, pt encouraged to get OOB more as well.
[2016-12-24] VITALS (7 sets, daily range): BP systolic 133–158; BP diastolic 80–92; PULSE 52–61; RESP 16–18; O2SAT 93–96
[2016-12-24] MEDS: 0.9% Sodium Chloride 1,000 ML IV SCH (02:21)
--- NOTE | 2016-12-24 03:29 | NUR ---
PAIN/ACTIVITY: Pt. reports abdominal pain at 4 to 8/10 given 5 mg of Roxicodone PRN orders. Helpful, but pt. wants to be awaken during the night to be given his pain pill every 4 hrs when it is due. Done as requested. Pt. also ambulated around the hallway several times before HS. Up independently. A & O, vss. On going care.
[2016-12-24] MEDS ORDERED: fentaNYL-PF 50 mCg/mL 2 mL Inj ONE (05:55)
[2016-12-24] MEDS ORDERED: Propofol 10,000 mCg/mL 20 mL Inj ONE (05:55)
[2016-12-24] MEDS: Pantoprazole 20 mg ER24 Tablet PO SCH (06:11)
--- NOTE | 2016-12-24 08:54 | PCM.PNMED ---
Subjective Date of Service Dec 24, 2016 Subjective Pt is tolerating his general diet but still requiring pain medications for pain control. He is passing gas and he also noted that his diarrhea is improving. his stools are pasty. Exam Vital Signs Vital Sign - Last Date Time Temp Pulse Resp B/P Pulse Ox O2 Delivery O2 Flow Rate FiO2 12/24/16 08:03 36.6 54 17 150/87 95 Room Air Intake and Output 12/23/16 12/23/16 12/24/16 Cumulative From/Thru 15:00 23:00 07:00 12/19/16 09:01 - 12/24/16 06:25 Intake Total 1620 ml 2422 ml 73888 ml Output Total 925 ml 700 ml 9075 ml Balance 695 ml 1722 ml 9059 ml Intake Oral 400 ml 1250 ml 6350 ml IV Total 1220 ml 1172 ml 43478 ml Output Urine Total 925 ml 700 ml 8875 ml Stool Total 200 ml # Bowel Movements 0 0 1 Exam Patient is alert oriented does appear comfortable Head and neck no icterus Lungs clear Cardiovascular regular rate and rhythm with normal S1-S2 Abdomen soft moderately distended tender in the upper quadrant area more so on to the right side and to the left no guarding rebound or firmness and bowel sounds present Extremities no pitting edema the ankles Skin shows no jaundice Lab and Diagnostics Result Diagram: 12/22/16 0500 12/22/16 0500 X-Rays, CTs and MRIs CT ABDOMEN AND PELVIS WITH CONTRAST IMPRESSION: 1. Marked enlargement of the duodenum and proximal jejunum with corresponding prominent bowel wall thickening. This appearance is most suspicious for an infectious or inflammatory process. An ischemic process is felt to be unlikely , but cannot be excluded. 2. Edema adjacent to the pancreas is of doubtful significance. However, the possibility of acute pancreatitis is difficult to exclude. There are no pseudocysts or loculated fluid collections. 3. Cirrhotic liver morphology with multiple abdominal collateral vessels, splenomegaly, and mild to moderate ascites. 4. Colonic diverticulosis without diverticulitis. No complete bowel obstruction. 5. Mild basilar atelectasis within the imaged lung bases. Dictated by: Carlitos Carrillo M.D. on 12/19/2016 at 11:29 Approved by: Carlitos Carrillo M.D. on 12/19/2016 at 11:56 PROCEDURE: US ABDOMEN, LIMITED IMPRESSION: No ascites identified. Dictated by: Juanpablo Villa RRA Interpreted: Brittany Friedman MD on 12/19/2016 at 16: 59 Transcribed by: IZABELA on 12/19/2016 at 17:00 Approved by: Brittany Friedman M.D. on 12/19/2016 at 22:48 PROCEDURE: MRA ANGIOGRAM ABDOMEN IMPRESSION: 1. No findings to suggest normal radiographic appearance of the aorta, mesenteric arteries, and renal arteries. 2. Findings suspicious for cirrhotic transformation and portal hypertension including ascites and splenomegaly. Dictated by: Nidia Allen M.D. on 12/19/2016 at 17:31 Approved by: Nidia Allen M.D. on 12/19/2016 at 17:34 Assessment & Plan 61 year old male with a past medical history of Hepatitis C Infection, Hepatic Cirrhosis, Essential Hypertension, Hyperlipidemia, GERD, and Tobacco Use Disorder who is admitted to hospital for suspected Infectious Colitis. We did an upper endoscopy on Sunday. Please see endoscopy report for further details. However the CT scan showing inflammation was confirmed however significant improvement of inflammation noted based on the EGD. I think I was able to get to the transition between duodenum and the jejunum. There were some mild evidence of edema and redness and biopsies obtained. He continues to tolerate general diet. However he still has this pain on the right side. In the past he did have pain as an outpatient but usually worse when he bent down or moved his body is concerned direction. Now the pain is relatively constant. It is not modulated by by mouth intake. This is again consistent with improving enteritis. At this point, I do not think the pain that he is having is due to the enteritis. However he still has this right- sided pain. In reviewing his CT scan, there is some minimal amount of fluids surrounding the liver. Recommendation a diagnostic tap and analysis of this fluid. If able to get fluid with send her for culture cell count and differential and albumin level. I was informed by the nursing staff that this was scheduled on Sunday. However it would be useful to have this done today if possible. If we cannot get a tap or if the fluid analysis is unremarkable, recommend CT with by mouth and IV contrast. Please encourage ambulation. Finally due to esophageal varices, would start the patient on propanolol 10 mg by mouth twice a day. If the heart rate is less than 55 or systolic blood pressure less than 100 or if his has dizziness lightheadedness, hold the propanolol. GI Prophylaxis: Proton Pump Inhibitor VTE Mechanical Devices: Intermittant Pneumatic CD Resuscitation Status: CPR: Attempt Resuscitation Farzad Evans MD Dec 24, 2016 08:54 GI Prophylaxis: Proton Pump Inhibitor VTE Mechanical Devices: Intermittant Pneumatic CD Resuscitation Status: CPR: Attempt Resuscitation Farzad Evans MD Dec 24, 2016 08:54
--- NOTE | 2016-12-24 11:49 | PCM.PNMED ---
Subjective Date of Service Dec 24, 2016 Subjective Follow up acute enteritis. Abdominal pain Patient seen and examined . No interval changes. No new complaints Exam Vital Signs Vital Sign - Last Date Time Temp Pulse Resp B/P Pulse Ox O2 Delivery O2 Flow Rate FiO2 12/24/16 10:23 61 12/24/16 08:03 36.6 17 150/87 95 Room Air Intake and Output 12/23/16 12/23/16 12/24/16 Cumulative From/Thru 15:00 23:00 07:00 12/19/16 09:01 - 12/24/16 06:25 Intake Total 1620 ml 2422 ml 28512 ml Output Total 925 ml 700 ml 9075 ml Balance 695 ml 1722 ml 9059 ml Intake Oral 400 ml 1250 ml 6350 ml IV Total 1220 ml 1172 ml 23182 ml Output Urine Total 925 ml 700 ml 8875 ml Stool Total 200 ml # Bowel Movements 0 0 1 Exam General: No acute distress. In bed comfortably HEENT: PERRL . Sclerae is anicteric Mouth : Moist oropharyngeal mucosa. Neck: supple, trachea is midline Chest:clear to auscultation and percussion. There are no rales, rhonchi, wheezes or rubs. Heart: S1, S2 regular Rate, rhythm is regular. There is no murmur, rub or gallop. Abdomen: Soft, non-tender, non-distended. Normal bowel sounds on quadrant Extremities: No edema, no cyanosis Neurologic: Grossly non focal IVs and Medications Medications Reviewed: Medications were reviewed in detail Lab and Diagnostics Result Diagram: 12/22/16 0500 12/22/16 0500 X-Rays, CTs and MRIs CT ABDOMEN AND PELVIS WITH CONTRAST IMPRESSION: 1. Marked enlargement of the duodenum and proximal jejunum with corresponding prominent bowel wall thickening. This appearance is most suspicious for an infectious or inflammatory process. An ischemic process is felt to be unlikely , but cannot be excluded. 2. Edema adjacent to the pancreas is of doubtful significance. However, the possibility of acute pancreatitis is difficult to exclude. There are no pseudocysts or loculated fluid collections. 3. Cirrhotic liver morphology with multiple abdominal collateral vessels, splenomegaly, and mild to moderate ascites. 4. Colonic diverticulosis without diverticulitis. No complete bowel obstruction. 5. Mild basilar atelectasis within the imaged lung bases. Dictated by: Carlitos Carrillo M.D. on 12/19/2016 at 11:29 Approved by: Carlitos Carrillo M.D. on 12/19/2016 at 11:56 PROCEDURE: US ABDOMEN, LIMITED IMPRESSION: No ascites identified. Dictated by: Juanpablo Villa RRA Interpreted: Brittany Friedman MD on 12/19/2016 at 16: 59 Transcribed by: IZABELA on 12/19/2016 at 17:00 Approved by: Brittany Friedman M.D. on 12/19/2016 at 22:48 PROCEDURE: MRA ANGIOGRAM ABDOMEN IMPRESSION: 1. No findings to suggest normal radiographic appearance of the aorta, mesenteric arteries, and renal arteries. 2. Findings suspicious for cirrhotic transformation and portal hypertension including ascites and splenomegaly. Dictated by: Nidia Allen M.D. on 12/19/2016 at 17:31 Approved by: Nidia Allen M.D. on 12/19/2016 at 17:34 Assessment & Plan 1. Infectious Colitis, Acute. POA. Improving. - CT scan is consistent with Infectious Colitis - Continue IV Ciprofloxacin and Metronidazole - He on liquid diet and tolerating . - Abdominal/RUQ pain unlikely ralated to enteritis . IR consulted by GI for possible tap on perihepatic fluid seen on CT scan 2. Hypokalemia, POA. - Resolved Eq now 3. Hepatic Cirrhosis, POA. Stable. - Secondary to Hepatitis C Outpatient follow up with GI 4. Essential Hypertension, POA. Stable. - Well controlled - Continue home medications 5. Hyperlipidemia, POA. Stable. - Continue home statin therapy 6. GERD, POA. Stable. - Continue daily PPI 7. Tobacco Use Disorder, POA. Stable. - Continue Nicotine Stable and improved. Patient with lingering abdominal pain . IR consulted by GI for possible tap of perihepatic fluid seen on CT scan . Likely for tomorrow Continue Cirpo and flagyl in the interim GI Prophylaxis: Proton Pump Inhibitor VTE Mechanical Devices: Intermittant Pneumatic CD Resuscitation Status: CPR: Attempt Resuscitation Time spent 25 minutes Mane Romero MD Dec 24, 2016 11:49
--- NOTE | 2016-12-24 18:37 | NUR ---
Abdomen Abdomen continues to be distended and painful. q4hr Brenda administered to keep pain controlled. Pt has had decreased appetite and RAMSAY. States he is passing minimal flatus and had BM yesterday. Urine is dark with a red tinge which he reports has been happening but had cleared over the last couple of days and has now returned. Tap and fluid testing planned for tomorrow morning.
[2016-12-25 00:48] VITALS: BP 162/87; PULSE 50; RESP 20; O2SAT 96
--- NOTE | 2016-12-25 04:05 | NUR ---
B/P / am testing Elevated b/p; aware and requests continued monitoring without med changes. Pain controlled with Q4 oxycodone. Abdomen continues to be distended, pt denies nausea. Tap and fluid testing planned for morning. Hourly rounding ongoing. Addendum: 12/25/16 at 0546 by AMAN FITZGERALD RN am B/P meds given early for persistent hypertension
[2016-12-25] MEDS: Pantoprazole 20 mg ER24 Tablet PO SCH (05:43)
[2016-12-25 06:46] VITALS: BP 164/90; PULSE 59; RESP 20; O2SAT 95
[2016-12-25 09:15] LABS: Mean Corpuscular Hemoglobin 33.3 pg (27.0-35.0); Mean Corpuscular Volume 99.2 fL (81-100)
[2016-12-25 09:30] LABS: INR 1.27 ratio
[2016-12-25 11:05] VITALS: BP 139/84; PULSE 52; RESP 20; O2SAT 95
--- NOTE | 2016-12-25 11:11 | PCM.PNMED ---
Subjective Date of Service Dec 25, 2016 Subjective Follow up for enteritis, abdominal pain, liver cirrhosis Patient seen and examined . Still with left right sided abdominal pain Tolerating regular diet . No nausea, no vomiting , no fever, no chills Exam Vital Signs Vital Sign - Last Date Time Temp Pulse Resp B/P Pulse Ox O2 Delivery O2 Flow Rate FiO2 12/25/16 06:46 36.2 59 20 164/90 95 Room Air Intake and Output 12/24/16 12/24/16 12/25/16 Cumulative From/Thru 15:00 23:00 07:00 12/19/16 09:01 - 12/25/16 06:46 Intake Total 1324 ml 400 ml 93804 ml Output Total 850 ml 1050 ml 23247 ml Balance 474 ml -650 ml 8883 ml Intake Oral 700 ml 400 ml 7450 ml IV Total 624 ml 92703 ml Output Urine Total 850 ml 1050 ml 82052 ml Stool Total 200 ml # Bowel Movements 0 0 1 Exam General: No acute distress. In bed comfortably. Anxious HEENT: PERRL . Sclerae is anicteric Mouth : Moist oropharyngeal mucosa. No oral thrush Neck: supple, trachea is midline , no cervical lymphadenopathy Chest:clear to auscultation and percussion. There are no rales, rhonchi, wheezes or rubs. Heart: S1, S2 regular Rate, rhythm is regular. There is no murmur, rub or gallop. Abdomen: Mild tenderness at right upper quadrant and left flank. no guarding. Normal bowel sounds on quadrant Extremities: No edema, no cyanosis, no clf tenderness Neurologic: Grossly non focal. AAO x 3 IVs and Medications Medications Reviewed: Medications were reviewed in detail Lab and Diagnostics Result Diagram: 12/25/1690412/25/16904 X-Rays, CTs and MRIs CT ABDOMEN AND PELVIS WITH CONTRAST IMPRESSION: 1. Marked enlargement of the duodenum and proximal jejunum with corresponding prominent bowel wall thickening. This appearance is most suspicious for an infectious or inflammatory process. An ischemic process is felt to be unlikely , but cannot be excluded. 2. Edema adjacent to the pancreas is of doubtful significance. However, the possibility of acute pancreatitis is difficult to exclude. There are no pseudocysts or loculated fluid collections. 3. Cirrhotic liver morphology with multiple abdominal collateral vessels, splenomegaly, and mild to moderate ascites. 4. Colonic diverticulosis without diverticulitis. No complete bowel obstruction. 5. Mild basilar atelectasis within the imaged lung bases. Dictated by: Carlitos Carrillo M.D. on 12/19/2016 at 11:29 Approved by: Carlitos Carrillo M.D. on 12/19/2016 at 11:56 PROCEDURE: US ABDOMEN, LIMITED IMPRESSION: No ascites identified. Dictated by: Juanpablo Villa RRA Interpreted: Brittany Friedman MD on 12/19/2016 at 16: 59 Transcribed by: IZABELA on 12/19/2016 at 17:00 Approved by: Brittany Friedman M.D. on 12/19/2016 at 22:48 PROCEDURE: MRA ANGIOGRAM ABDOMEN IMPRESSION: 1. No findings to suggest normal radiographic appearance of the aorta, mesenteric arteries, and renal arteries. 2. Findings suspicious for cirrhotic transformation and portal hypertension including ascites and splenomegaly. Dictated by: Nidia Allen M.D. on 12/19/2016 at 17:31 Approved by: Nidia Allen M.D. on 12/19/2016 at 17:34 Assessment & Plan 1. Infectious Colitis, Acute. POA. Improving. - CT scan is consistent with Infectious Colitis - Continue IV Ciprofloxacin and Metronidazole - Patient tolerating regular diet but still complaining of diffused abdominal pain , worse in right upper quadrant - Abdominal/RUQ pain unlikely ralated to enteritis , which has improved. I discussed the case with GI and AI talked this morning with radiology for perihepatic fluid tap . Fkuid to be sent for cytology with diff, culture and albumin . Hopefully there is enough fluid there for aspiration , otherwise a repeat CT scan of the abdomen is reasonable. 2. Hypokalemia, POA. - Resolved 3. Hepatic Cirrhosis, POA. Stable. - Secondary to Hepatitis C Outpatient follow up with GI . I am not sure if treatment with new hepatitis C drug will be of any benefit at this juncture 4. Essential Hypertension, POA. Stable. - Well controlled - Continue home medications 5. Hyperlipidemia, POA. Stable. - Continue home statin therapy 6. GERD, POA. Stable. - Continue daily PPI 7. Tobacco Use Disorder, POA. Stable. - Continue Nicotine Clinically and hemodynamically improved but patient is till with abdominal pain . Discussed with GI about need for perihepatic fluid tap and study ( scheduled for today ) Continue Cirpo and flagyl in the interim GI follow up. GI Prophylaxis: Proton Pump Inhibitor VTE Mechanical Devices: Intermittant Pneumatic CD Resuscitation Status: CPR: Attempt Resuscitation Time spent 25 minutes Mane Romero MD Dec 25, 2016 11:11
--- NOTE | 2016-12-25 12:24 | DRSVH ---
PROCEDURE: US ABDOMEN, LIMITED ([id number]) INDICATIONS: Tap of perihepatic fluid TECHNIQUE: Real-time focused scanning was performed of the abdomen, with image documentation. COMPARISON: [facility], , ABDOMEN LTD, 12/19/2016, 16:52. FINDINGS: There is a small amount of free fluid within the peritoneal space but insufficient for safe access for paracentesis given immediately adjacent bowel loops. IMPRESSION: Ascites is present but small in quantity and safe paracentesis at this time is not possib le. Dictated by: Keith Membreno M.D. on 12/25/2016 at 12:21 Approved by: Keith Membreno M.D. on 12/25/2016 at 12:22
[2016-12-25 13:54] VITALS: BP 155/84; PULSE 50; RESP 20; O2SAT 95
--- NOTE | 2016-12-25 14:55 | NUR ---
Social Work-readiness for discharge: Data:EMR reviewed. Pt is on day 6 of hospitalization for abdominal pain per H&P. Pt is not medically stable for discharge anticipate 1-2 more days. Per RN notes, pt has been up independent in his room. SW followed up with pt at bedside, SW role explained. Pt is planning on returning home at discharge and does not anticipate any discharge needs. Pt declines any HH services. No anticipated discharge needs. SW will continue to follow if needs arise. Assessment:Pt who is independent at baseline. Plan:Pt to discharge home when medically stable via POV. No anticipated discharge needs. SW will continue to follow if needs arise. OBDULIA Leroy
--- NOTE | 2016-12-25 16:26 | NUR ---
Pain/anxiety/testing patient very anxious about getting testing done as want's to go home soon. Patient was to get paracentesis today but ultrasound showed small amount of fluid and not enough to warrant abdominal tap. patient is to get CT scan this afternoon and if looks ok Dr will most likely discharge patient home tomorrow and patient will follow up as a outpatient for abdominal distention.
--- NOTE | 2016-12-25 17:15 | DRSVH ---
PROCEDURE: CT ABDOMEN AND PELVIS WITH CONTRAST ([id number]) INDICATIONS: 61-year-old male with diffuse abdominal pain. TECHNIQUE: After the administration of intravenous contrast, 5 mm thick sections acquired from the diaphragm to the symphysis. 5 mm coronal and sagittal reformats were acquired. For radiation dose reduction, the following was used: automated exposure control, adjustment of mA and/or kV according to patient apolinar fan. COMPARISON: [facility], [place], ABDOMEN LTD, 12/25/2016, 11:27. [facility], CT, CT ABD PELVIS W CON, 12/19/2016, 12:13. FINDINGS: Image quality: Excellent. ABDOMEN: Lung bases: Lung bases are clear. Heart size is normal. Solid organs: Cirrhotic liver is again noted, with relative right hepatic lobe atrophy, caudate lobe hypertrophy, and nodular capsular contour. Gallbladder is surgically absent. Biliary system is non dilated. Pancreas enhances normally. Significant splenomegaly is again noted, measuring 21.7 cm in craniocaudal dimensions. No adrenal nodules. Kidneys demonstrate normal size and enhancement, withou t hydronephrosis. Peritoneum and bowel: Stomach is now largely decompressed. Previously noted duodenal fold and wall t hickening has normalized. Bowel loops demonstrate normal wall thickness and caliber. There is mild de scending and sigmoid colon diverticulosis. Scattered abdominal and pelvic ascites is not significantl y changed. No free air. Nodes and vessels: No retroperitoneal or mesenteric adenopathy by size criteria. Aorta and inferior vena cava are normal in size, with moderate aortoiliac atherosclerosis. Splenic and main portal vein s appear patent. Miscellaneous: No ventral hernias. PELVIS: Genitourinary: Bladder wall thickness is normal. Prostate gland is normal in size. Miscellaneous: No inguinal hernias or adenopathy. Bones: No suspicious bony lesions. No vertebral body compression fractures. IMPRESSION: 1. Interval resolution of duodenal wall and fold thickening, consistent with infectious etiology. No new acute findings to explain diffuse abdominal pain. 2. Cirrhotic liver as before, along with sequelae of portal hypertension, with marked splenomegaly an d scattered ascites. 3. Mild descending and sigmoid colon diverticulosis. Dictated by: Miguel Willis M.D. on 12/25/2016 at 17:05 Approved by: Miguel Willis M.D. on 12/25/2016 at 17:13
[2016-12-25] MEDS: 0.9% Sodium Chloride 1,000 ML IV SCH (17:16)
[2016-12-25 20:55] VITALS: BP 147/87; PULSE 58; RESP 16; O2SAT 94
--- NOTE | 2016-12-26 04:25 | NUR ---
Pain Patient continues to have pain 5-03/19. Roxycodone given for pain. Patient anxious to go home and for some resolution of condition. Current orders for Infectious disease consult. Possible discharge today.Vitals stable. Patient resting in bed.
[2016-12-26] MEDS: 0.9% Sodium Chloride 1,000 ML IV SCH (05:34)
[2016-12-26] MEDS: Pantoprazole 20 mg ER24 Tablet PO SCH (06:10)
[2016-12-26 06:23] VITALS: BP 138/74; PULSE 56; RESP 20; O2SAT 96
[2016-12-26 07:30] LABS: BASOPHILS % (AUTO) 0.3 % (0-3); EOSINOPHILS % (AUTO) 1.7 % (0-5); MONOCYTES % (AUTO) 15.2 % (4-12); Mean Corpuscular Hemoglobin 32.9 pg (27.0-35.0); Mean Corpuscular Volume 99.7 fL (81-100); Platelet Count 71 bil/L (150-400)
[2016-12-26] MEDS ORDERED: OXYC5TAB72 PO (08:51)
[2016-12-26] MEDS ORDERED: CIPR-231 PO (08:51)
[2016-12-26] MEDS ORDERED: METR500T PO (08:51)
--- NOTE | 2016-12-26 08:57 | PCM.DIMED ---
Discharge Instructions Date of Service Dec 26, 2016 Dates of Hospitalization Dec 19, 2016 at 14:57 Discharge Diagnosis Discharge Diagnosis 1. Infectious Colitis, Acute. POA. Improving. 2. Hypokalemia, POA. 3. Hepatic Cirrhosis, POA. Stable. 4. Essential Hypertension, POA. Stable. 5. Hyperlipidemia, POA. Stable. Diet No restrictions Activity No restrictions Call your provider Fever or Chills, Other (Worsening abdominal pain) Patient Instructions Follow-up plan Pt to FU ideally in next 1-2 weeks with GI specialist in [place], and subsequently with ID specialist with GI consultation ordered. Will complete 14 day course of antibiotics, Flagyl and Cipro two times daily provided on Discharge. Would also recommend FU with you PCP at [facility] within 2 weeks of Discharge. Follow-up with PCP in: 1 week Cristian Green DO Dec 26, 2016 08:57
--- NOTE | 2016-12-26 09:04 | PCM.DC.MED ---
Discharge Summary Date of Service Dec 26, 2016 Dates of Hospitalization Date of Hospital Admission Dec 19, 2016 at 14:57 Date of Discharge: Dec 26, 2016 Providers: Admitting Physician: Donavon Ambrose MD Primary Care Physician: [facility] Attending Physician: Donavon Ambrose MD Diagnosis at Time of Discharge Diagnosis at Time of Discharge 1. Infectious Colitis, Acute. POA. Improving. 2. Hypokalemia, POA. 3. Hepatic Cirrhosis, POA. Stable. 4. Essential Hypertension, POA. Stable. 5. Hyperlipidemia, POA. Stable. Consultations Gastroenterology, Dr Evans General Surgery, Dr Dallas Lowe Procedures XRay, CTs & MRIs CT ABDOMEN AND PELVIS WITH CONTRAST IMPRESSION: 1. Marked enlargement of the duodenum and proximal jejunum with corresponding prominent bowel wall thickening. This appearance is most suspicious for an infectious or inflammatory process. An ischemic process is felt to be unlikely , but cannot be excluded. 2. Edema adjacent to the pancreas is of doubtful significance. However, the possibility of acute pancreatitis is difficult to exclude. There are no pseudocysts or loculated fluid collections. 3. Cirrhotic liver morphology with multiple abdominal collateral vessels, splenomegaly, and mild to moderate ascites. 4. Colonic diverticulosis without diverticulitis. No complete bowel obstruction. 5. Mild basilar atelectasis within the imaged lung bases. Dictated by: Carlitos Carrillo M.D. on 12/19/2016 at 11:29 Approved by: Carlitos Carrillo M.D. on 12/19/2016 at 11:56 PROCEDURE: US ABDOMEN, LIMITED IMPRESSION: No ascites identified. Dictated by: Juanpablo Villa [facility] Interpreted: Brittany Friedman MD on 12/19/2016 at 16: 59 Transcribed by: IZABELA on 12/19/2016 at 17:00 Approved by: Brittany Friedman M.D. on 12/19/2016 at 22:48 PROCEDURE: MRA ANGIOGRAM ABDOMEN IMPRESSION: 1. No findings to suggest normal radiographic appearance of the aorta, mesenteric arteries, and renal arteries. 2. Findings suspicious for cirrhotic transformation and portal hypertension including ascites and splenomegaly. Dictated by: Nidia Allen M.D. on 12/19/2016 at 17:31 Approved by: Nidai Allen M.D. on 12/19/2016 at 17:34 PROCEDURE: CT ABDOMEN AND PELVIS WITH CONTRAST ([id number]) IMPRESSION: 1. Interval resolution of duodenal wall and fold thickening, consistent with infectious etiology. No new acute findings to explain diffuse abdominal pain. 2. Cirrhotic liver as before, along with sequelae of portal hypertension, with marked splenomegaly and scattered ascites. 3. Mild descending and sigmoid colon diverticulosis. Dictated by: Miguel Willis M.D. on 12/25/2016 at 17:05 Brief History Patient is a 61 year old male with a past medical history of Hepatitis C, Hepatic Cirrhosis, Essential Hypertension, Hyperlipidemia, GERD, and Tobacco Use Disorder. He presents to the ER complaining of worsening abdominal pain for the past day. Pt states his symptoms began yesterday with severe pain across his mid abdomen. Pt states the pain is a dull sensation, and radiates across his mid abdomen. The pain comes and goes and at its worst, he reports it is a 10/10. Pt states he also had a fever to 102 degrees yesterday and chills. He also reports significant nausea and vomiting over the last day and has not been able tolerate any PO. Pt states he has also had significant diarrhea over the last two days. He denies any hematochezia and melena. Pt denies any recent sick contacts. Pt has no other complaints or concerns at this time. Hospital Course 1. Infectious Colitis, Acute. POA. Diagnoses on admission. Pt initially started on IV antibiotics, (Cipro and Flagyl), on admission, with General surgery and GI consulted for further evaluation. Medical management vs surgical intervention proved the preferred method of care based on surgical recommendations. Pain was slow to improve with treatment, and given Perihepatic fluid visualized on imaging studies in region of pain, a diagnostic tpa was planned, but unable to be conducted by intervention radiology as there was not a large enough collection. Repeat imaging studies supported improving colitis with stable fluid collection. Pt pain was improved at this time, tolerating PO food, fluids well. Discharge with plan for prompt FU with GI specialist out patient planned. With likely subsequent referral to ID should fluid collection around liver remain. Pt provided total of 14 day course antibiotics on discharge. 2. Hypokalemia, POA. - Resolved 3. Hepatic Cirrhosis, POA. Stable. - Secondary to Hepatitis C . PLanned outpatient follow up with GI for further management. May consider new medical treatments. 4. Essential Hypertension, POA. Stable. - Well controlled. Continued home medications on DC 5. Hyperlipidemia, POA. Stable. - Continue home statin therapy 6. GERD, POA. Stable. - Continue daily PPI 7. Tobacco Use Disorder, POA. Stable. - Continue Nicotine Exam Vital Signs (Last) Date Time Temp Pulse Resp B/P Pulse Ox O2 Delivery O2 Flow Rate FiO2 12/26/16 06:23 37.0 56 20 138/74 96 Room Air Test 12/19/16 09:05 12/19/16 12:34 12/19/16 15:20 12/20/16 05:15 Hold Purple Top Tube Received (Received) Hold Blue Top Tube Received (Received) Magnesium Level 1.7mg/dL (1.6-2.6) Lipase 13U/L (13-60) Hold Red Top Tube Received (Received) Hold [place] Top Tube Received (Received) Urine Color Dark yellow (YELLOW) Urine Appearance Hazy (CLEAR,HAZY) Urine pH 6.0 (5.0-8.0) Urine Specific [place] 1.025 (1.003-1.035) Urine Protein 30mg/dL (NEG,TRACE) Urine Glucose (UA) Negativemg/dL (NEGATIVE) Urine Ketones Negativemg/dL (NEGATIVE) Urine Occult Blood Trace (NEGATIVE) Urine Nitrite Negative (NEGATIVE) Urine Bilirubin Negative (NEGATIVE) Urine Urobilinogen Normalmg/dL (NORMAL) Urine Leukocyte Esterase Negative (NEGATIVE) Urine RBC 0-2/hpf (0-2) Urine WBC 0-5/hpf (0-5) Urine Epithelial Cells Occasional/hpf (NONE-MOD) Urine Crystals None seen (NONE SEEN) Urine Bacteria None/hpf (NONE-FEW) Urine Hyaline Casts None/lpf (NONE) Urine Granular Casts None seen (NONE SEEN) Urine Waxy Casts None seen (NONE SEEN) Urine Red Blood Cell Casts None seen (NONE SEEN) Urine White Blood Cell Casts None seen (NONE SEEN) Urine Mucus Present (None Seen) Urine Trichomonas None seen (NONE SEEN) Urine Yeast None (NONE SEEN) Urinalysis Comment None Urine Culture Reflexed Not indicated Lactic Acid Level 1.5mmol/L (0.4-2.0) Procalcitonin 3.30ng/mL (0.00-0.08) Test 12/21/16 10:18 12/25/16 09:05 12/26/16 04:50 Ammonia 38ug/dL (18-53) Prothrombin Time 13.7sec (8.1-12.5) Prothromb Time International Ratio 1.27ratio Total Bilirubin 2.1mg/dL (0.0-1.2) Aspartate Amino Transf (AST/SGOT) 73U/L (0-50) Alanine Aminotransferase (ALT/SGPT) 56U/L (0-44) Alkaline Phosphatase 84U/L (25-160) Total Protein 6.3g/dL (6.4-8.4) Albumin 2.7g/dL (3.4-5.0) White Blood Count 2.9th/mm3 (3.8-10.1) Red Blood Count 3.59mil/mm3 (4.40-5.80) Hemoglobin 11.8g/dL (13.8-17.2) Hematocrit 35.8% (41.0-50.0) Mean Corpuscular Volume 99.7fL (81-100) Mean Corpuscular Hemoglobin 32.9pg (27.0-35.0) Mean Corpuscular Hemoglobin Concent 33.0% (32.0-37.0) Red Cell Distribution Width 14.4% (12.3-15.4) Platelet Count 71bil/L (150-400) Neutrophils (%) (Auto) 69.0% (40-74) Lymphocytes (%) (Auto) 13.1% (14-46) Monocytes (%) (Auto) 15.2% (4-12) Eosinophils (%) (Auto) 1.7% (0-5) Basophils (%) (Auto) 0.3% (0-3) Sodium Level 137mEq/L (134-144) Potassium Level 3.7mEq/L (3.5-5.2) Chloride Level 104mEq/L (97-108) Carbon Dioxide Level 23mmol/L (18-29) Blood Urea Nitrogen 10mg/dL (6-24) Creatinine 0.71mg/dL (0.76-1.27) Estimat Glomerular Filtration Rate 121mL/min (>59) Glucose Level 115mg/dL (60-99) Calcium Level 7.9mg/dL (8.5-10.1) General: Alert, Oriented X3, Cooperative, Mild Distress Eyes: PERRLA Mouth: Mucous Membr Moist/[place] Chest & Lungs: Chest Wall Normal Cardiovascular: Regular Rate/Rhythm Abdomen: Tender, Distended, Soft, Other (No gaurding. (+)BS. No oganomegally appreciated bUT limited ability to palpate RUQ due to pain. ) Extremities: No cyanosis/clubbing/edma bilat Neurological: Grossly Neurologically Intact Discharge Medications Discharge Medications Amlodipine (Amlodipine) 5 Mg Tablet 5 MG PO DAILY (Reported) Ciprofloxacin (Cipro) 500 Mg Tablet 500 MG PO BID@ Prescribed by: CRISTIAN GREEN DO Lisinopril (Lisinopril) 20 Mg Tablet 20 MG PO BID (Reported) Metoprolol Succinate ER (Metoprolol Succinate ER) 25 Mg Tab.er.24h 25 MG PO DAILY (Reported) Metronidazole (Metronidazole) 500 Mg Tablet 500 MG PO TID Prescribed by: CRISTIAN GREEN DO Omeprazole (Omeprazole) 40 Mg Capsule.dr 40 MG PO BID (Reported) Simvastatin (Simvastatin) 20 Mg Tablet 20 MG PO HS (Reported) Triamterene/HCTZ 37.5-25 mg (Dyazide 37.5-25 mg) 1 Each Capsule 1 CAPSULE PO DAILY (Reported) As needed oxyCODONE (oxyCODONE) 5 Mg Tablet 5 MG PO Q4H PRN PRN For Moderate Pain Prescribed by: CRISTIAN GREEN DO Followup Plan Follow-up plan Pt to FU ideally in next 1-2 weeks with GI specialist in [place], Dr Mello, and subsequently with ID specialist with GI consultation ordered. Will complete 14 day course of antibiotics, Flagyl and Cipro two times daily provided on Discharge. Would also recommend FU with you PCP at [facility] within 2 weeks of Discharge. Discharge Diet: No restrictions Discharge Activity: No restrictions Follow-up with PCP in: 1 week Time spent 40 minutes Vital Signs Vital Sign - Last Date Time Temp Pulse Resp B/P Pulse Ox O2 Delivery O2 Flow Rate FiO2 12/26/16 06:23 37.0 56 20 138/74 96 Room Air Intake and Output 12/25/16 12/25/16 12/26/16 Cumulative From/Thru 15:00 23:00 07:00 12/19/16 09:01 - 12/26/16 06:23 Intake Total 1220 ml 21600 ml Output Total 950 ml 64339 ml Balance 270 ml 9153 ml Intake Oral 300 ml 7750 ml IV Total 920 ml 65464 ml Output Urine Total 950 ml 04267 ml Stool Total 200 ml # Bowel Movements 0 1 IVs and Medications Medications Reviewed: Medications were reviewed in detail Lab and Diagnostics Result Diagram: 12/26/16 0450 12/26/16 0450 Cristian Green DO Dec 26, 2016 09:04
[2016-12-26 09:59] VITALS: BP 158/96; PULSE 50; RESP 18; O2SAT 96
[2016-12-26] MEDS ORDERED: METR500T19 PO (10:08)
--- NOTE | 2016-12-26 10:17 | NUR ---
Social Work-discharge: Data:EMR reviewed. Pt is on day 7 of hospitalization for abdominal pain per H&P. Pt is medically stable for discharge today. SW confirmed with pt home no needs. Pt has been up independent in his room. No discharge needs identified. All updated and agreeable to plan. Assessment:Pt who is independent at baseline. Plan:Pt to discharge home today via POV. No discharge needs identified. All updated and agreeable to plan. OBDULIA Leroy
--- NOTE | 2016-12-26 10:30 | NUR ---
DISCHARGE Patient rates R side abdominal pain 5/10, which is tolerable for him. Tolerating general diet without any problem. Reviewed patient discharge information with patient and POA at bedside. Verified understanding of duration of antibiotics. Hard copy Rx given to patient. IV catheter removed intact by SN. Dressing applied. Encouraged to follow up with GI MD in [place], Dr. Caban. Patient got dressed independently and was wheeled out to personal vehicle. Left with all personal belongings.
--- NOTE | 2016-12-26 12:39 | PCM.PNMED ---
Subjective Date of Service Dec 26, 2016 Subjective Patient is tolerating diet. Still has the right sided pain which radiate. Exam Vital Signs Vital Sign - Last Date Time Temp Pulse Resp B/P Pulse Ox O2 Delivery O2 Flow Rate FiO2 12/26/16 09:59 36.8 50 18 158/96 96 Room Air Intake and Output 12/25/16 12/25/16 12/26/16 Cumulative From/Thru 15:00 23:00 07:00 12/19/16 09:01 - 12/26/16 06:23 Intake Total 1220 ml 45442 ml Output Total 950 ml 09844 ml Balance 270 ml 9153 ml Intake Oral 300 ml 7750 ml IV Total 920 ml 15931 ml Output Urine Total 950 ml 65812 ml Stool Total 200 ml # Bowel Movements 0 1 Exam Patient is alert and oriented comfortable Head and neck no icterus Lungs clear Cardiovascular regular rate and rhythm with normal S1 and S2 Abdomen soft again tenderness noted in the right upper quadrant area without guarding rebound or firmness. It actually feels less tender today. Mildly distended with normoactive bowel sounds. Extremities no pedal edema. Skin shows no jaundice. Lab and Diagnostics Result Diagram: 12/26/16 0450 12/26/16 0450 X-Rays, CTs and MRIs CT ABDOMEN AND PELVIS WITH CONTRAST IMPRESSION: 1. Marked enlargement of the duodenum and proximal jejunum with corresponding prominent bowel wall thickening. This appearance is most suspicious for an infectious or inflammatory process. An ischemic process is felt to be unlikely , but cannot be excluded. 2. Edema adjacent to the pancreas is of doubtful significance. However, the possibility of acute pancreatitis is difficult to exclude. There are no pseudocysts or loculated fluid collections. 3. Cirrhotic liver morphology with multiple abdominal collateral vessels, splenomegaly, and mild to moderate ascites. 4. Colonic diverticulosis without diverticulitis. No complete bowel obstruction. 5. Mild basilar atelectasis within the imaged lung bases. Dictated by: Carlitos Carrillo M.D. on 12/19/2016 at 11:29 Approved by: Carlitos Carrillo M.D. on 12/19/2016 at 11:56 PROCEDURE: US ABDOMEN, LIMITED IMPRESSION: No ascites identified. Dictated by: Juanpablo Villa [facility] Interpreted: Brittany Friedman MD on 12/19/2016 at 16: 59 Transcribed by: IZABELA on 12/19/2016 at 17:00 Approved by: Brittany Friedman M.D. on 12/19/2016 at 22:48 PROCEDURE: MRA ANGIOGRAM ABDOMEN IMPRESSION: 1. No findings to suggest normal radiographic appearance of the aorta, mesenteric arteries, and renal arteries. 2. Findings suspicious for cirrhotic transformation and portal hypertension including ascites and splenomegaly. Dictated by: Nidia Allen M.D. on 12/19/2016 at 17:31 Approved by: Nidia Allen M.D. on 12/19/2016 at 17:34 PROCEDURE: CT ABDOMEN AND PELVIS WITH CONTRAST ([id number]) IMPRESSION: 1. Interval resolution of duodenal wall and fold thickening, consistent with infectious etiology. No new acute findings to explain diffuse abdominal pain. 2. Cirrhotic liver as before, along with sequelae of portal hypertension, with marked splenomegaly and scattered ascites. 3. Mild descending and sigmoid colon diverticulosis. Dictated by: Miguel Willis M.D. on 12/25/2016 at 17:05 Assessment & Plan Infectious Colitis, Acute. POA. Diagnoses on admission. Pt initially started on IV antibiotics, (Cipro and Flagyl), on admission, with General surgery and GI consulted for further evaluation. Medical management vs surgical intervention proved the preferred method of care based on surgical recommendations. Pain was slow to improve with treatment, and given Perihepatic fluid visualized on imaging studies in region of pain, a diagnostic tpa was planned, but unable to be conducted by intervention radiology as there was not a large enough collection. Repeat imaging studies supported improving colitis with stable fluid collection. 61 year old male with a past medical history of Hepatitis C Infection, Hepatic Cirrhosis, Essential Hypertension, Hyperlipidemia, GERD, and Tobacco Use Disorder who is admitted to hospital for suspected Infectious Colitis. We did an upper endoscopy on Sunday. Please see endoscopy report for further details. However the CT scan showing inflammation was confirmed however significant improvement of inflammation noted based on the EGD. I think I was able to get to the transition between duodenum and the jejunum. There were some mild evidence of edema and redness and biopsies obtained. He continues to tolerate general diet. However he still has this pain on the right side. In the past he did have pain as an outpatient but usually worse when he bent down or moved his body is concerned direction. Now the pain is relatively constant. Pain was slow to improve with treatment, and given Perihepatic fluid visualized on imaging studies in region of pain, a diagnostic tpa was planned, but unable to be conducted by intervention radiology as there was not a large enough collection. Repeat imaging studies supported improving colitis with stable fluid collection. It is not modulated by by mouth intake. This is again consistent with improving enteritis. At this point, I do not think the pain that he is having is due to the enteritis. I spoke with the night float physician from last night to get in infectious disease recommendation about antibiotics and her thoughts on about this fluid collection. GI Prophylaxis: Proton Pump Inhibitor VTE Mechanical Devices: Intermittant Pneumatic CD Resuscitation Status: CPR: Attempt Resuscitation Farzad Evans MD Dec 26, 2016 12:39
--- NOTE | 2016-12-27 19:02 | PATH ---
SURGICAL PATHOLOGY Attending Physician:Farzad Evans M.D. CASE STATUS: Signed Out PATIENT NAME: NERI CROFT PID: [id number] : 1955 DATE COLLECTED:12/22/2016 00:00 SPECIMEN: Small Intestine/Bowel, Biopsy CLINICAL HISTORY: 1). RANDOM JEJUNUM FINAL DIAGNOSIS: Jejunum, Random Biopsy: Superficial portions of small bowel mucosa with focal active inflammation, nonspecific. Negative for granulomas, pathogenic organisms, dysplasia, and malignancy. ICD10: K52.9 GROSS DESCRIPTION: The specimen is received in one formalin filled container labeled with the patient's name, sublabeled "jejunum" and consists of 3 portions of tissue which aggregate to 0.4 with 0.4 x 0.3 CM. The specimen is entirely submitted in one cassette. 12/23/2016 [facility] ICD-9 CODES: CPT CODES: 1: 13928 Electronically Signed Out Ines Gudino MD [facility] Pathology [facility], [place] [address] Technical component performed at [facility], [address] [place] [address] Ave[address], [place], [address]
== END 2016-12-26 10:35 | disposition home or self-care (01) | DRG 392 ==
LOC: SED 08:55 → OSC 14:57
PROVIDERS: ADMIT Family Medicine; ATTEND Family Medicine
PROC: 0DB88ZX Excision of Small Intestine, Via Natural or Artificial Opening Endoscopic, Diagnostic (ICD-10-PCS; principal; 2016-12-22 17:15)
DX: A09 Infectious gastroenteritis and colitis, unspecified (principal); I85.00 Esophageal varices without bleeding; B19.20 Unspecified viral hepatitis C without hepatic coma; R10.84 Generalized abdominal pain; Z79.82 Long term (current) use of aspirin; F17.210 Nicotine dependence, cigarettes, uncomplicated; E78.5 Hyperlipidemia, unspecified; K21.9 Gastro-esophageal reflux disease without esophagitis; I10 Essential (primary) hypertension; K74.69 Other cirrhosis of liver; E87.6 Hypokalemia